=== PATIENT | male | born 1990 | race Caucasian/White ===

== ENCOUNTER 2019-04-26 18:16 | Emergency (ER) | payer OTHER ==
[~2019-04-26] VITALS: Ht 177 cm; Wt 90.0 kg
[~2019-04-26 18:16] MED LIST: CEPH-507 PO; DOXY100C2 PO; FAMO20TA5 PO; IBP800T PO; METH4TAB PO; NAPR-243 PO; NAPR500T72 PO; OMEP20TA2 PO; PHEN177S41 IH; PRD20T PO
--- NOTE | 2019-04-26 19:09 | ED Head Injury ---
General Chief Complaint: Head/Cervical Problems Stated Complaint: UNLOADING TRUCK, HIT IN HEAD BY BOX Nursing Triage Note: PT STATES WAS HIT ON HEAD TODAY BY LARGE BOX OF CHICKEN BROTH, [place] LOC BUT STATES FEELS TIRED, AND DAZED, CO OF L SIDED NECK STIFFNESS Source: patient Exam Limitations: no limitations History of Present Illness Date Seen by Provider: Apr 26, 2019 Time Seen by Provider: 19:05 Initial Comments To ER with reports of head injury while at work at [employer] today. He was hit on the top left parietal aspect of his head with a box of chicken broth is very large. No loss of consciousness but he was dazed. No anticoagulant use no seizures recalls all events no vomiting no amnesia. He does have dizziness and fatigue and complains of pain to the left side of the neck worse with turning the neck to the right. This is not midline neck tenderness. Occurred: just prior to arrival Severity: moderate Location: parietal Method of Injury: direct blow Loss of Consciousness: no loss of consciousness Associated Systoms: No Headaches, No Nausea/Vomiting Allergies and Home Medications Allergies Coded Allergies: No Known Drug Allergies (Unverified Allergy, Mild, 01/16/09) Home Medications No Active Prescriptions or Reported Meds Patient Home Medication List Home Medication List Reviewed: Yes Review of Systems Review of Systems Constitutional: see HPI Eyes: No Symptoms Reported Ears, Nose, Mouth, Throat: no symptoms reported Respiratory: no symptoms reported Cardiovascular: no symptoms reported Genitourinary: no symptoms reported Musculoskeletal: no symptoms reported Skin: no symptoms reported Psychiatric/Neurological: No Symptoms Reported Endocrine: No Symptoms Reported Past Exdaubq-Lsbvlw-Qebext Hx Patient Social History Alcohol Use: Occasionally Uses Recreational Drug Use: No Type Used: Electronic/Vapor Recent Foreign Travel: No Contact w/Someone Who Travel: No Recent Infectious Disease Expo: No Recent Hopitalizations: No Seasonal Allergies Seasonal Allergies: No Past Medical History Surgeries: No Respiratory: No Cardiac: No Neurological: No Reproductive Disorders: No Gastrointestinal: No Musculoskeletal: No Endocrine: No Cancer: No Psychosocial: No Integumentary: Yes (HIVES) Blood Disorders: No Physical Exam Vital Signs Vital Signs - First Documented 04/26/19 18:35 Temp 36.9 Pulse 60 Resp 18 B/P (MAP) 121/76 (91) Pulse Ox 99 Capillary Refill : Less Than 3 Seconds Height, Weight, BMI Height: 5'10" Weight: 195lbs. oz. 88.774781dc; 28.00 BMI Method:Stated General Appearance: WD/WN, no apparent distress HEENT: PERRL/EOMI, normal ENT inspection, TMs normal, pharynx normal, other (no hemotympanum no Marquez's sign no raccoon eyes no palpable depressed skull fracture and for that matter there is no hematoma or palpable injury to the area that was struck with the box of chicken broth) Neck: full range of motion, tender lateral Respiratory: no respiratory distress, no accessory muscle use Gastrointestinal: normal bowel sounds, non tender Psychiatric: alert, oriented x 3 Crainal Nerves: normal hearing, normal speech, PERRL Skin: normal color, warm/dry Kahlil Coma Score Best Eye Response: (4) Open Spontaneously Best Verbal Response: (5) Oriented Best Motor Response: (6) Obeys Commands [place] Total: 15 Progress/Results/Core Measures Results/Orders My Orders Orders - TWYLA LEUNG APRN Cervical Spine 3 Views Or Less (04/26/19 18:45) Vital Signs/I&O 04/26/19 18:35 Temp 36.9 Pulse 60 Resp 18 B/P (MAP) 121/76 (91) Pulse Ox 99 Blood Pressure Mean: 91 POS Departure Communication (Admissions) Based on a [place] head CT rules he does not warrant CT imaging of the head. I will obtain plain films of the neck given the pain laterally Impression Primary Impression: Brain concussion Qualified Codes: S06.0X0A - Concussion without loss of consciousness, initial encounter Additional Impression: Cervical myofascial strain Qualified Codes: S16.1XXA - Strain of muscle, fascia and tendon at neck level, initial encounter Disposition: 01 HOME, SELF-CARE Condition: Stable Departure-Patient Inst. Decision time for Depature: 19:08 Referrals: [facility] (PCP/Family) Primary Care Physician Patient Instructions: Muscle Strain, Concussion, Adult (DC) Add. Discharge Instructions: 1. This dazed feeling may persist for a couple of days accompanied by dizziness nausea headaches. If any of these become severe or worsening then we would do a CT scan of the head but at this point it is not warranted to exposure to the radiation associated with that All discharge instructions reviewed with patient and/or family. Voiced understanding. Scripts Methocarbamol (Robaxin-750) 750 Mg Tablet 750 MG PO Q4H PRN for PAIN-SEVERE, #14 TAB Prov: TWYLA LEUNG APRN 04/26/19 Work/School Note: Work Release Form Date Seen in the Emergency Department: Apr 26, 2019 Return to Work: Apr 29, 2019 TWYLA LEUNG APRN Apr 26, 2019 19:09 POS
--- NOTE | 2019-04-26 19:44 | Diagnostic Imaging Report ---
EXAMINATION: Cervical spine, 2 or 3 views. HISTORY: Trauma. COMPARISON: No radiographic comparison available. FINDINGS: There is straightening of the normal cervical lordosis. Vertebral body heights are normal. No fracture is seen. No listhesis. Disc spaces are normal. No prevertebral soft tissue swelling. Atlantoaxial alignment is normal on the open-mouth view. IMPRESSION: No acute abnormality of the cervical spine. Dictated by: Dictated on workstation # [id number]
[2019-04-26] MEDS ORDERED: METH-313 PO (19:51)
[2019-04-26 20:00] VITALS: BP 121/76
== END 2019-04-26 20:00 | disposition home or self-care (01) ==
LOC: EDUNIT# 18:16 → ER 18:18
DX: S06.0X0A Concussion without loss of consciousness, initial encounter (principal); S16.1XXA Strain of muscle, fascia and tendon at neck level, initial encounter; W22.8XXA Striking against or struck by other objects, initial encounter; Y92.59 Other trade areas as the place of occurrence of the external cause; Y99.0 Civilian activity done for income or pay
CPT/HCPCS: 72040

== ENCOUNTER 2019-06-25 14:38 | Emergency (ER) | payer SELFPAY ==
[~2019-06-25] VITALS: Ht 177.7 cm; Wt 90.6 kg
[~2019-06-25 14:38] MED LIST changes: +METH-313 PO
[2019-06-25] MEDS ORDERED: AMOX500C2 PO (15:23)
--- NOTE | 2019-06-25 15:23 | ED EENT ---
History of Present Illness General Chief Complaint: Dental Problems/Pain Stated Complaint: DENTAL PAIN;SWOLLEN FACE Nursing Triage Note: AMB TO ROOM HAS HAD BAD TOOTH FOR 7 YEARS TODAY CONCERN THAT R SIDE OF FACE IS SWOLLEN History of Present Illness Date Seen by Provider: Jun 25, 2019 Time Seen by Provider: 15:05 Initial Comments 29-year-old male presents for right upper dental pain. He states that symptoms of been present intermittently for the last 7 years. He does not currently have a dentist or a primary care provider. Severity: mild Location: dental Associated Symptoms: denies symptoms Allergies and Home Medications Allergies Coded Allergies: No Known Drug Allergies (Unverified Allergy, Mild, 01/16/09) Home Medications Amoxicillin 500 Mg Capsule, 500 MG PO TID Prescribed by: LANDEN GUZMAN on 06/25/19 1523 Patient Home Medication List Home Medication List Reviewed: Yes Review of Systems Review of Systems Constitutional: no symptoms reported, see HPI Mouth: see HPI, pain All Other Systems Reviewed Negative Unless Noted: Yes Past Mmrsbkw-Muwsjy-Zmygev Hx Past Med/Social Hx: Reviewed Nursing Past Med/Soc Hx Patient Social History Alcohol Use: Denies Use Recreational Drug Use: No Smoking Status: Current Everyday Smoker Type Used: Electronic/Vapor Recent Foreign Travel: No Contact w/Someone Who Travel: No Recent Infectious Disease Expo: No Recent Hopitalizations: No Seasonal Allergies Seasonal Allergies: No Past Medical History Surgeries: No Respiratory: No Cardiac: No Neurological: No Reproductive Disorders: No Gastrointestinal: No Musculoskeletal: No Endocrine: No Cancer: No Psychosocial: No Integumentary: Yes (HIVES) Blood Disorders: No Physical Exam Vital Signs Vital Signs - First Documented 06/25/19 15:02 Temp 36.8 Pulse 75 Resp 18 B/P (MAP) 110/67 (81) Pulse Ox 98 O2 Delivery Room Air Height, Weight, BMI Height: 5'10" Weight: 195lbs. oz. 88.549750or; 28.00 BMI Method:Stated General Appearance: WD/WN Ears: bilateral ear auricle normal, bilateral ear canal normal, bilateral ear TM normal Nose: normal inspection; No active bleeding, No discharge Mouth/Throat: pharynx normal, dental tenderness (right upper molars), maxillary swelling; No pharynx swelling, No tongue swollen, No tonsillar exudate, No uvula swelling, No voice changes Neck: non-tender, full range of motion, supple, normal inspection; No lymphadenopathy (R), No lymphadenopathy (L) Cardiovascular: normal peripheral pulses, regular rate, rhythm Respiratory: chest non-tender, lungs clear, normal breath sounds Neurologic/Psychiatric: no motor/sensory deficits, alert, normal mood/affect, oriented x 3 Progress/Results/Core Measures Results/Orders Vital Signs/I&O 06/25/19 06/25/19 15:02 15:34 Temp 36.8 36.8 Pulse 75 75 Resp 18 18 B/P (MAP) 110/67 (81) 110/67 (81) Pulse Ox 98 98 O2 Delivery Room Air Blood Pressure Mean: 81 Departure Impression Primary Impression: Pain, dental Additional Impression: Dental abscess Disposition: HOME, SELF-CARE Condition: Improved Departure-Patient Inst. Decision time for Depature: 15:20 Referrals: NO,LOCAL PHYSICIAN (PCP/Family) Primary Care Physician Patient Instructions: Dental Pain (DC), Tooth Abscess (DC) Add. Discharge Instructions: Alternate heat and ice to face for areas of pain. Take antibiotic as prescribed for infection. Alternate between Tylenol 650 mg and ibuprofen 600 mg every 4 hours for pain. Schedule follow-up at [facility] for tooth extraction. Establish care at [facility] for nonemergent health care needs. Return to the emergency department for new, urgent health care problems. All discharge instructions reviewed with patient and/or family. Voiced understanding. Scripts Amoxicillin (Amoxicillin) 500 Mg Capsule 500 MG PO TID, #21 CAP 0 Refills Prov: LANDEN GUZMAN 06/25/19 LANDEN GUZMAN Jun 25, 2019 15:23
[2019-06-25 15:34] VITALS: BP 110/67
== END 2019-06-25 15:30 | disposition home or self-care (01) ==
LOC: ER 14:38 → EDUNIT# 14:38 → ER 15:30
DX: K04.7 Periapical abscess without sinus (principal); F17.290 Nicotine dependence, other tobacco product, uncomplicated
CPT/HCPCS: 99282

== ENCOUNTER 2021-02-26 01:05 | Emergency (ER) | payer SELFPAY ==
[~2021-02-26] VITALS: Ht 177 cm; Wt 97.5 kg
[~2021-02-26 01:05] MED LIST changes: +AMOX500C2 PO; +AZIT250T12 PO
[2021-02-26] MEDS ORDERED: AUGMENTIN 875 MG TAB (AMOXICILLIN/CLAVULANATE) PO STA (01:18)
--- NOTE | 2021-02-26 01:29 | ED Integumentary General ---
General Chief Complaint: Bite-Animal/Human/Insect Stated Complaint: DOG BITE R LEG Source: patient Exam Limitations: no limitations History of Present Illness Date Seen by Provider: Feb 26, 2021 Time Seen by Provider: 01:13 Initial Comments Here with report of dog bite to the right lower leg above the ankle. Apparently he was at his cousin's house here in town and was walking one of the dogs. The other dog that is only outside (the [place] Segal) was wrapped up around the pole that he is tied up to. The patient went to unwrap the dog and the other dog that he was walking in the dog that was wrapped up started fighting. He tried to separate the dogs and the [place] Segal accidentally bit him on the leg. Patient reports last tetanus shot was 5 years ago. Bleeding is controlled. Does have 4 cm horizontal laceration. No other wounds noted. The dogs are known animals and reportedly up-to-date on the vaccination. Timing/Duration: just prior to arrival Severity: moderate Location: extremities (Right lower) Possible Cause: other (Dog bite) Allergies and Home Medications Allergies Coded Allergies: No Known Drug Allergies (Unverified Allergy, Mild, 01/16/09) Patient Home Medication List Home Medication List Reviewed: Yes Amoxicillin (Amoxicillin) 500 Mg Capsule, 500 MG PO TID Prescribed by: LANDEN GUZMAN on 06/25/19 1523 Azithromycin (Azithromycin) 250 Mg Tablet, 250 MG PO UD Prescribed by: TWYLA LEUNG on 11/13/20 1322 Prednisone (Prednisone) 20 Mg Tab, 40 MG PO DAILY Prescribed by: TWYLA LEUNG on 11/13/20 1322 Review of Systems Review of Systems Constitutional: No chills, No fever Respiratory: no symptoms reported Cardiovascular: no symptoms reported Skin: see HPI, change in color, lesions (Right lower extremity) Psychiatric/Neurological: No Symptoms Reported Past Glikycq-Xykofl-Tgydpz Hx Patient Social History Tobacco Use?: Yes Tobacco type used: Cigarettes Substance use?: No Alcohol Use?: Yes Alcohol type: Hard Liquor Alcohol Frequency: Several times a month Immunizations Up To Date Influenza Vaccine Up-to-Date: Yes; Up-to-Date Seasonal Allergies Seasonal Allergies: No Past Medical History Surgeries: No Respiratory: No Cardiac: No Neurological: No Reproductive Disorders: No Gastrointestinal: No Musculoskeletal: No Endocrine: No Cancer: No Psychosocial: Yes Depression Integumentary: Yes (HIVES) Blood Disorders: No Family Medical History Reviewed Nursing Family Hx Physical Exam Vital Signs Capillary Refill : General Appearance: WD/WN, no apparent distress Cardiovascular: regular rate, rhythm, no murmur Respiratory: lungs clear, normal breath sounds Neurologic/Psychiatric: alert, oriented x 3 Skin: warm/dry, other (4 cm horizontal laceration to the right lower extremity medial aspect above the ankle. Does have some gapping in the middle. Would benefit from closure.) Procedures/Interventions Wound Location: Lower Extremities Other Wound Location Right leg proximal to the ankle Wound Length (cm): 4 Wound's Depth, Shape: superficial, linear, irregular Wound Explored: contaminated Irrigated w/ Saline (ccs): 100 Betadine Prep?: Yes Anesthesia: 1% Lidocaine Volume Anesthetic (ccs): 6 Wound Debrided: minimal Suture: Prolene Suture Size: 4-0 Number of Sutures: 4 Layer Closure?: 1 Number Deep Layer Sutures: 0 Sterile Dressing Applied?: Yes Progress Wound cleaned with chlorhexidine soap and saline after local anesthesia. Scrubbed with gauze and then flushed with copious normal saline. Closed loosely with 4-0 Prolene times 4 sutures. Tolerated procedure well with no complications. Cover with antibiotic ointment and dressing. Progress/Results/Core Measures Results/Orders My Orders Orders - OLGA RAYA MD Amoxicillin/Clavulanate Tablet (Augmenti (02/26/21 01:18) Lidocaine 1% Inj 20 Ml (Xylocaine 1% Inj (02/26/21 01:30) Medications Given in ED Current Medications Medications Dose Ordered Sig/Isabel Route Start Time Stop Time Status Last Admin Dose Admin Lidocaine HCl 20 ml ONCE ONCE INJ 02/26/21 01:30 02/26/21 01:31 DC 02/26/21 01:29 20 ML Progress Progress Note : Progress Note Seen and evaluated. Wound closure loosely with 4-0 Prolene to improve healing. This was done after local anesthetic and thorough cleaning. Augmentin 875 1 tab p.o. given. Discharged home with return precautions. Patient verbalized understanding instructions and agreement with plan. Law enforcement notified and did take report. Departure Impression Primary Impression: Dog bite Qualified Codes: W54.0XXA - Bitten by dog, initial encounter Additional Impression: Laceration of right lower extremity Qualified Codes: S81.811A - Laceration without foreign body, right lower leg, initial encounter Disposition: HOME, SELF-CARE Condition: Improved Departure-Patient Inst. Decision time for Depature: 01:49 Referrals: [facility] ([facility]P/Family) Primary Care Physician Patient Instructions: Laceration Repair With Stitches ED, Animal Bites (DC) Add. Discharge Instructions: All discharge instructions reviewed with patient and/or family. Voiced understanding. Use antibiotic ointment over wounds and change dressing twice daily. It is okay to shower and gently wash with soap and water. Do not soak the wound in any body of water. You may use Tylenol and/or ibuprofen as needed for pain per package directions. Return for foul-smelling drainage, red streaks up the leg, fever, increasing pain or other concerns as needed. Sutures out in 10 to 14 days. Return to the emergency department for suture removal. Take medications as directed. Scripts Amoxicillin/Potassium Clav (Amox Tr-K Clv 500-125 mg Tab) 1 Each Tablet 1 EACH PO BID for 10 Days, #20 TAB 0 Refills Prov: OLGA RAYA MD 02/26/21 OLGA RAYA MD Feb 26, 2021 01:29
[2021-02-26] MEDS ORDERED: LIDOCAINE 1% INJ 20 ML 20 ML VIAL INJ ONE (01:30)
[2021-02-26] MEDS ORDERED: AMOX1TAB11 PO (01:52)
[2021-02-26 01:55] VITALS: BP 127/75
== END 2021-02-26 01:58 | disposition home or self-care (01) ==
LOC: EDUNIT# 01:05 → ER 01:06
DX: S81.851A Open bite, right lower leg, initial encounter (principal); Z79.52 Long term (current) use of systemic steroids; W54.0XXA Bitten by dog, initial encounter
CPT/HCPCS: 12042

== ENCOUNTER 2021-03-08 13:09 | Emergency (ER) | payer SELFPAY ==
[~2021-03-08] VITALS: Ht 175 cm; Wt 93.0 kg
[~2021-03-08 13:09] MED LIST changes: +AMOX1TAB11 PO
[2021-03-08] MEDS ORDERED: CEPH500T PO (13:27)
[2021-03-08 13:35] VITALS: BP 96/72
== END 2021-03-08 13:36 | disposition home or self-care (01) ==
LOC: EDUNIT# 13:09 → ER 13:10
DX: Z48.02 Encounter for removal of sutures (principal)

== ENCOUNTER 2021-05-15 20:11 | Emergency (ER) | payer SELFPAY ==
[~2021-05-15] VITALS: Ht 178 cm; Wt 95.0 kg
[~2021-05-15 20:11] MED LIST changes: +CEPH500T PO
--- NOTE | 2021-05-15 20:36 | ED General ---
General Stated Complaint: CONGESTION/SORE THROAT/NO TASTE/BODY ACHES Source of Information: Patient Exam Limitations: No Limitations History of Present Illness Date Seen by Provider: May 15, 2021 Time Seen by Provider: 20:36 Initial Comments This is a well-appearing 31-year-old male who presented to the ER with complaints of significant nasal congestion, sore throat, mild cough, loss of taste and smell and body aches. States that he developed symptoms approximately 2 days ago. He did have his Covid vaccines Moderna, both doses in November/December of this year. Has been using [id number]-[id number] cough drops and Claritin with no relief of symptoms. No fever, chest pain, shortness of breath, nausea, vomiting, abdominal pain. Allergies and Home Medications Allergies Coded Allergies: No Known Drug Allergies (Unverified Allergy, Mild, 01/16/09) Patient Home Medication List Home Medication List Reviewed: Yes Amoxicillin (Amoxicillin) 500 Mg Capsule, 500 MG PO TID Prescribed by: LANDEN GUZMAN on 06/25/19 1523 Amoxicillin/Potassium Clav (Amox Tr-K Clv 500-125 mg Tab) 1 Each Tablet, 1 EACH PO BID Prescribed by: OLGA RAYA on 02/26/21 0152 Azithromycin (Azithromycin) 250 Mg Tablet, 250 MG PO UD Prescribed by: TWYLA LEUNG on 11/13/20 1322 Cephalexin (Cephalexin) 500 Mg Tablet, 500 MG PO QID Prescribed by: TWYLA LEUNG on 03/08/21 1327 Methylprednisolone (Methylprednisolone Dose Pack) 4 Mg Tab.ds.pk, 4 MG PO UD Prescribed by: WENDY HARPER on 05/15/21 2143 Prednisone (Prednisone) 20 Mg Tab, 40 MG PO DAILY Prescribed by: TWYLA LEUNG on 11/13/20 1322 Review of Systems Review of Systems Constitutional: see HPI EENTM: see HPI Respiratory: cough Cardiovascular: no symptoms reported Gastrointestinal: no symptoms reported Genitourinary: no symptoms reported Musculoskeletal: no symptoms reported Skin: no symptoms reported Psychiatric/Neurological: No Symptoms Reported Hematologic/Lymphatic: No Symptoms Reported Immunological/Allergic: no symptoms reported Past Pindjdq-Rokbcb-Uimxse Hx Seasonal Allergies Seasonal Allergies: No Past Medical History Surgeries: No Respiratory: No Cardiac: No Neurological: No Reproductive Disorders: No Gastrointestinal: No Musculoskeletal: No Endocrine: No Cancer: No Psychosocial: Yes Depression Integumentary: Yes (HIVES) Blood Disorders: No Physical Exam Vital Signs Vital Signs - First Documented Capillary Refill : Height, Weight, BMI Height: 5'10" Weight: 195lbs. oz. 88.318070pg; 31.00 BMI Method:Actual General Appearance: No Apparent Distress, WD/WN Eyes: Bilateral Eye Normal Inspection, Bilateral Eye PERRL, Bilateral Eye EOMI HEENT: PERRL/EOMI, Normal ENT Inspection, Pharynx Normal, Moist Mucous Membranes; No Pharyngeal Erythema; Other (frontal and maxillary sinus tenderness ) Neck: Full Range of Motion, Normal Inspection, Non Tender, Supple Respiratory: Lungs Clear, Normal Breath Sounds, No Accessory Muscle Use, No Respiratory Distress Cardiovascular: Regular Rate, Rhythm, No Edema, No Murmur Gastrointestinal: Normal Bowel Sounds, Non Tender, Soft Extremity: Normal Inspection, Normal Range of Motion Neurologic/Psychiatric: Alert, Oriented x3, No Motor/Sensory Deficits, Normal Mood/Affect Skin: Normal Color, Warm/Dry Lymphatic: No Adenopathy Procedures/Interventions Suture Size: 4-0 Progress/Results/Core Measures Suspected Sepsis SIRS Temperature: Pulse: Respiratory Rate: Blood Pressure / Mean: Results/Orders Lab Results Laboratory Tests Test 05/15/21 20:32 Range/Units Influenza Type A (RT-PCR) Not Detected Not Detecte Influenza Type B (RT-PCR) Not Detected Not Detecte SARS-CoV-2 RNA (RT-PCR) Detected H Not Detecte My Orders Orders - WENDY HARPER APRN Covid 19 Inhouse Test (05/15/21 20:31) Influenza A And B By Pcr (05/15/21 20:32) Vital Signs/I&O 05/15/21 05/15/21 05/15/21 20:25 20:25 21:55 Temp 36.9 Pulse 88 70 Resp 16 16 B/P (MAP) 124/82 (96) 114/90 Pulse Ox 97 98 O2 Delivery Room Air Room Air Room Air Capillary Refill : Progress Note : Progress Note Patient examined and in no acute distress. Vital signs stable. Orders placed for Covid and influenza swabs. COVID swab positive. Discharge POC reviewed and he his agreeable with plan. Departure Impression Primary Impression: COVID-19 Disposition: 01 HOME, SELF-CARE Condition: Stable Departure-Patient Inst. Decision time for Depature: 21:37 Referrals: [facility] (PCP/Family) Primary Care Physician Patient Instructions: COVID-19 ED Add. Discharge Instructions: Plan: 1. Isolate at home until you are release by [facility]. 2. Take Steroids daily with food as directed. 3. May take Tylenol or Ibuprofen as needed for pain/fever. 4. Return if you develop any new, concerning, or worsening symptoms. Scripts Methylprednisolone (Methylprednisolone Dose Pack) 4 Mg Tab.ds.pk 4 MG PO UD for 6 Days, #21 PKG 0 Refills PER DOSE PACK INSTRUCTIONS Prov: WENDY HARPER MINER 05/15/21 WENDY HARPER MINER May 15, 2021 20:36
[2021-05-15] MEDS ORDERED: METH4TAB10 PO (21:43)
[2021-05-15 21:55] VITALS: BP 114/90
== END 2021-05-15 21:55 | disposition home or self-care (01) ==
LOC: EDUNIT# 20:11 → ER 20:14
DX: U07.1 COVID-19 (principal)
CPT/HCPCS: 87636; 99283

== ENCOUNTER 2021-08-24 01:45 | Emergency (ER) | payer SELFPAY ==
[~2021-08-24] VITALS: Ht 177 cm; Wt 102.0 kg
[~2021-08-24 01:45] MED LIST changes: +METH4TAB10 PO
--- NOTE | 2021-08-24 03:40 | ED Abdominal Pain ---
General Chief Complaint: Abdominal/GI Problems Stated Complaint: ABD PAIN Nursing Triage Note: STOMACH PAIN X1 DAY. PAIN LOCATED IN LOWER ABDOMEN BILATERALLY. VOMITTED MULTIPLE TIME, "NOW, NOTHING IS COMING UP." DRANK PRUNE JUICE YESTERDAY. HAD SMALL "SOGGY SOLID" BOWEL MOVEMENT. PAIN CONTINUES AND INCREASING. HAS TRIED MULTIPLE TIMES TO HAVE A BM SINCE ARRIVAL. Source of Information: Patient Exam Limitations: No Limitations (OPAL VALLEJO) History of Present Illness Date Seen by Provider: Aug 24, 2021 Time Seen by Provider: 03:30 Initial Comments This is a 31 YO male presenting to the ED with lower abdominal pain worsening over the past day. Has also had nausea and vomiting. Feels constipated and has the urge to have a bowel movement, but is unable to. Last BM was yesterday. Has used Tums and prune juice for sx without improvement. No history of abdominal surgeries. Timing/Duration: 24 Hours Associated Symptoms: Nausea/Vomiting (OPAL VALLEJO STUDENT) Allergies and Home Medications Allergies Coded Allergies: No Known Drug Allergies (Unverified Allergy, Mild, 01/16/09) Patient Home Medication List Home Medication List Reviewed: Yes (NASIMA ARTEAGA MD) Amoxicillin (Amoxicillin) 500 Mg Capsule, 500 MG PO TID Prescribed by: LANDEN GUZMAN on 06/25/19 1523 Amoxicillin/Potassium Clav (Amox Tr-K Clv 500-125 mg Tab) 1 Each Tablet, 1 EACH PO BID Prescribed by: OLGA RAYA on 02/26/21 0152 Azithromycin (Azithromycin) 250 Mg Tablet, 250 MG PO UD Prescribed by: TWYLA LEUNG on 11/13/20 1322 Cephalexin (Cephalexin) 500 Mg Tablet, 500 MG PO QID Prescribed by: TWYLA LEUNG on 03/08/21 1327 Ciprofloxacin HCl (Ciprofloxacin HCl) 500 Mg Tablet, 500 MG PO BID Prescribed by: NASIMA MOSER on 08/24/21 0739 Methylprednisolone (Methylprednisolone Dose Pack) 4 Mg Tab.ds.pk, 4 MG PO UD Prescribed by: WENDY HARPER on 05/15/21 214 Ondansetron (Ondansetron Odt) 4 Mg Tab.rapdis, 4 MG SL Q4H PRN for NAUSEA/VOMITING Prescribed by: NASIMA MOSER on 08/24/21 0739 Oxycodone HCl/Acetaminophen (Percocet 5-325 mg Tablet) 1 Each Tablet, 1-2 TAB PO Q4H PRN for PAIN-MODERATE (5-7) Prescribed by: NASIMA MOSER on 08/24/21 0739 Prednisone (Prednisone) 20 Mg Tab, 40 MG PO DAILY Prescribed by: TWYLA LEUNG on 11/13/20 1322 Promethazine HCl (Promethazine Tablet) 25 Mg Tablet, 25 MG PO Q6H PRN for NAUSEA/VOMITING-2ND LINE Prescribed by: NASIMA MOSER on 08/24/21 0739 Review of Systems Review of Systems Constitutional: no symptoms reported EENTM: No Symptoms Reported Respiratory: No Symptoms Reported Cardiovascular: No Symptoms Reported Gastrointestinal: See HPI Genitourinary: Other (Oligoanuria) Musculoskeletal: no symptoms reported Skin: no symptoms reported Psychiatric/Neurological: No Symptoms Reported Endocrine: No Symptoms Reported Hematologic/Lymphatic: No Symptoms Reported (NASIMA ARTEAGA MD) Past Jpqyzhe-Nrxmty-Dhpzab Hx Patient Social History Tobacco Use?: Yes Smoking Status: Current Everyday Smoker Use of E-Cig and/or Vaping dev: Yes E-Cig or Vaping type used: Nicotine Use of E-Cig and/or Vaping Leroy: Current Everyday User Substance use?: No Alcohol Use?: Yes Alcohol type: Beer Alcohol Frequency: Several times a month Pt feels they are or have been: No (OPAL VALLEJO MED STUDENT) Immunizations Up To Date Influenza Vaccine Up-to-Date: No; Not Current First/Initial COVID19 Vaccinat: JUN 2020 Second COVID19 Vaccination Zach: NOVEMBER 2020 COVID19 Vaccine Energy Conservation Engineer: ADRIANA (OPAL VALLEJO MED STUDENT) Seasonal Allergies Seasonal Allergies: No (OPAL VALLEJO MED STUDENT) Past Medical History Surgeries: No Respiratory: No Cardiac: No Neurological: No Reproductive Disorders: No Gastrointestinal: No Musculoskeletal: No Endocrine: No Cancer: No Psychosocial: Yes Depression Integumentary: Yes (HIVES) Blood Disorders: No (OPAL VALLEJO MED STUDENT) Physical Exam Vital Signs Vital Signs - First Documented 08/24/21 03:09 Temp 36.6 Pulse 69 Resp 24 B/P (MAP) 150/102 (118) Pulse Ox 98 O2 Delivery Room Air (NASIMA ARTEAGA MD) Vital Signs Capillary Refill : Less Than 3 Seconds (OPAL VALLEJO MED STUDENT) Height/Weight/BMI Height: 5'10" Weight: 195lbs. oz. 88.061369pf; 32.00 BMI Method:Actual General Appearance: WD/WN, other (mild to moderate distress) HEENT: PERRL/EOMI; No scleral icterus (R), No scleral icterus (L) Neck: full range of motion, normal inspection Respiratory: no respiratory distress, no accessory muscle use Extremities: normal range of motion, normal inspection, other (ambulatory without assistance) Neurologic/Psychiatric: no motor/sensory deficits, alert, oriented x 3 Skin: normal color, diaphoresis (OPAL VALLEJO STUDENT) Procedures/Interventions Suture Size: 4-0 (OPAL VALLEJO STUDENT) Progress/Results/Core Measures Results/Orders Lab Results Laboratory Tests Test 08/24/21 03:20 08/24/21 06:55 Range/Units White Blood Count 11.0 4.3-11.0 10^3/uL Red Blood Count 4.98 4.30-5.52 10^6/uL Hemoglobin 17.2 13.3-17.7 g/dL Hematocrit 48 40-54 % Mean Corpuscular Volume 97 80-99 fL Mean Corpuscular Hemoglobin 35 H 25-34 pg Mean Corpuscular Hemoglobin Concent 36 32-36 g/dL Red Cell Distribution Width 11.8 10.0-14.5 % Platelet Count 207 130-400 10^3/uL Mean Platelet Volume 10.1 9.0-12.2 fL Immature Granulocyte % (Auto) 0 % Neutrophils (%) (Auto) 67 42-75 % Lymphocytes (%) (Auto) 23 12-44 % Monocytes (%) (Auto) 7 0-12 % Eosinophils (%) (Auto) 2 0-10 % Basophils (%) (Auto) 0 0-10 % Neutrophils # (Auto) 7.4 1.8-7.8 10^3/uL Lymphocytes # (Auto) 2.5 1.0-4.0 10^3/uL Monocytes # (Auto) 0.8 0.0-1.0 10^3/uL Eosinophils # (Auto) 0.2 0.0-0.3 10^3/uL Basophils # (Auto) 0.0 0.0-0.1 10^3/uL Immature Granulocyte # (Auto) 0.0 0.0-0.1 10^3/uL Sodium Level 142 135-145 MMOL/L Potassium Level 4.1 3.6-5.0 MMOL/L Chloride Level 103 98-107 MMOL/L Carbon Dioxide Level 25 21-32 MMOL/L Anion Gap 14 5-14 MMOL/L Blood Urea Nitrogen 12 7-18 MG/DL Creatinine 1.49 H 0.60-1.30 MG/DL Estimat Glomerular Filtration Rate 64 BUN/Creatinine Ratio 8 Glucose Level 111 H 70-105 MG/DL Calcium Level 10.8 H 8.5-10.1 MG/DL Corrected Calcium 8.5-10.1 MG/DL Total Bilirubin 0.6 0.1-1.0 MG/DL Aspartate Amino Transf (AST/SGOT) 14 5-34 U/L Alanine Aminotransferase (ALT/SGPT) 27 0-55 U/L Alkaline Phosphatase 45 40-136 U/L C-Reactive Protein High Sensitivity 0.28 0.00-0.50 MG/DL Total Protein 7.6 6.4-8.2 GM/DL Albumin 4.7 H 3.2-4.5 GM/DL Lipase 31 8-78 U/L Urine Color YELLOW Urine Clarity CLEAR Urine pH 6.5 5-9 Urine Specific Snook <=1.005 1.016-1.022 Urine Protein NEGATIVE NEGATIVE Urine Glucose (UA) NEGATIVE NEGATIVE Urine Ketones NEGATIVE NEGATIVE Urine Nitrite NEGATIVE NEGATIVE Urine Bilirubin NEGATIVE NEGATIVE Urine Urobilinogen 0.2 < = 1.0 MG/DL Urine Leukocyte Esterase NEGATIVE NEGATIVE Urine RBC (Auto) TRACE-I H NEGATIVE Urine RBC RARE /HPF Urine WBC NONE /HPF Urine Squamous Epithelial Cells NONE /HPF Urine Crystals NONE /LPF Urine Bacteria NEGATIVE /HPF Urine Casts NONE /LPF Urine Mucus NEGATIVE /LPF Urine Culture Indicated NO (NASIMA ARTEAGA MD) My Orders Orders - NASIMA ARTEAGA MD Ed Iv/Invasive Line Start (08/24/21 04:11) Cbc With Automated Diff (08/24/21 04:11) Comprehensive Metabolic Panel (08/24/21 04:11) Hs C Reactive Protein (08/24/21 04:11) Lipase (08/24/21 04:11) Ua Culture If Indicated (08/24/21 04:11) Ondansetron Injection (Zofran Injectio (08/24/21 04:15) Fentanyl Inj (Sublimaze Injection) (08/24/21 04:15) Famotidine Injection (Pepcid Injection) (08/24/21 04:15) Morphine Injection (Morphine Injection (08/24/21 04:36) Ct Abdomen/Pelvis W (08/24/21 04:36) Lactated Ringers (Lr 1000 Ml Iv Solution (08/24/21 04:45) Lactated Ringers (Lr 1000 Ml Iv Solution (08/24/21 06:00) Ketorolac Injection (Toradol Injection) (08/24/21 06:00) Iohexol Injection (Omnipaque 350 Mg/Ml 1 (08/24/21 06:00) Received Contrast (Hold Metformin- Contr (08/24/21 06:00) Sodium Chloride Flush (Catheter Flush Sy (08/24/21 06:00) Ns (Ivpb) (Sodium Chloride 0.9% Ivpb Bag (08/24/21 06:00) Abdomen/Kub 1view (08/24/21 06:05) Promethazine Injection (Phenergan Injec (08/24/21 06:16) (NASIMA ARTEAGA MD) Medications Given in ED Current Medications Medications Dose Ordered Sig/Isabel Route Start Time Stop Time Status Last Admin Dose Admin Iohexol 100 ml ONCE ONCE IV 08/24/21 06:00 08/24/21 06:01 DC 08/24/21 06:00 100 ML Ketorolac Tromethamine 30 mg ONCE ONCE IVP 08/24/21 06:00 08/24/21 06:01 DC 08/24/21 06:39 30 MG Lactated Ringer's 1,000 ml @ 0 mls/hr Q0M ONCE IV 08/24/21 06:00 08/24/21 06:01 DC 08/24/21 06:22 1,000 MLS/HR Promethazine HCl 25 mg ONCE ONCE IVP 08/24/21 06:15 08/24/21 06:16 DC 08/24/21 06:22 25 MG Sodium Chloride 10 ml NEEDED PRN IV 08/24/21 06:00 08/24/21 07:57 DC 08/24/21 06:00 10 ML Sodium Chloride 100 ml ONCE ONCE IV 08/24/21 06:00 08/24/21 06:01 DC 08/24/21 06:00 80 ML (NASIMA ARTEAGA MD) Vital Signs/I&O 08/24/21 08/24/21 03:09 07:56 Temp 36.6 Pulse 69 69 Resp 24 24 B/P (MAP) 150/102 (118) 136/88 Pulse Ox 98 98 O2 Delivery Room Air Room Air (NASIMA ARTEAGA MD) Blood Pressure Mean: 118 Progress Progress Note : Progress Note Patient seemed quite ill upon arrival and seemed to have an acute abdomen. He was treated with fentanyl and morphine for pain. Zofran was given for nausea. IV fluids were infused. CT was obtained which revealed a left ureteral stone but no infectious process. Toradol was then given for pain. He had rebound nausea and vomiting. Phenergan 25 mg and a second liter of LR was then administered. It took the patient quite some time to provide a urine sample. UA was evaluated and showed no signs of infection. Patient was ultimately discharged with follow-up instructions as noted below as well as prescriptions. (NASIMA ARTEAGA MD) Diagnostic Imaging Diagonstic Imaging: CT Plain Films/CT/US/NM/MRI: abdomen, pelvis Comments CT scan viewed by me and report reviewed. See report below: NAME: DYLAN OSEI [facility] REC#: [id number] PT STATUS: DEP ER : 1990 PHYSICIAN: NASIMA ARTEAGA MD ADMIT DATE: 08/24/21/ER Signed Date of Exam:08/24/21 CT ABDOMEN/PELVIS W PROCEDURE: CT abdomen and pelvis with contrast. TECHNIQUE: Multiple contiguous axial images were obtained through the abdomen and pelvis after administration of intravenous contrast. Auto Exposure Controls were utilized during the CT exam to meet ALARA standards for radiation dose reduction. All CT scans use one or more of the following dose optimizing techniques: automated exposure control, MA and/or KvP adjustment based on patient size and exam type or iterative reconstruction. INDICATION: 31-year-old male presents with abdominal pain, nausea, and vomiting. COMPARISONS: None FINDINGS: The lung bases are clear. Cardiac contour is normal. Liver shows uniform attenuation. There is no intraparenchymal mass or ductal dilatation. Gallbladder shows no evidence of radiopaque stones, sludge, wall thickening or pericholecystic fluid. Spleen is unremarkable. There is a small hiatal hernia. There is also some mucosal thickening in the distal esophagus which could be additionally characterized by EGD. Stomach and duodenal sweep are unremarkable. Pancreas shows sharp margins. Adrenals are normal. Kidneys appear normal in size, position, and contour. There is some left perinephric stranding. There is also some mild left hydronephrosis. There is also some left ureteral stranding with slight prominence of the left ureter. This left obstructive uropathy is secondary to a 4 mm stone in the left ureteropelvic junction. Bladder is nondistended. Nonopacified loops of small bowel are unremarkable. Appendix is normal. Large bowel contains fecal material and gas up to the hepatic flexure. The distal colon is decompressed. There is no free air, free fluid or adenopathy. Visualized vasculature shows normal caliber of the aorta, iliac and femoral arteries with normal origin of the visceral arteries. Bone windows show some degenerative changes in the lumbosacral spine. 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 There is no spondylolisthesis. IMPRESSION: 1. Left obstructive uropathy with left perinephric stranding and periureteral stranding with mild left hydronephrosis and left hydroureter. This left obstructive uropathy is secondary to a 4 mm stone at the left UPJ. 2. No evidence of cholecystitis or appendicitis. No other areas of peritoneal inflammation seen. 3. Degenerative changes of lumbosacral spine with an incidental L5 spondylolysis without spondylolisthesis. Dictated by: Dictated on workstation # [id number] Dict: 08/24/21 0604 Trans: 08/24/21 1154 RAFA [id number] Interpreted by: RIVERA PABLO MD Electronically signed by: RIVERA PABLO MD 08/24/21 1154 Diagonstic Imaging: Xray Plain Films/CT/US/NM/MRI: abdomen, pelvis Comments NAME: DYLAN OSEI [facility] REC#: [id number] PT STATUS: DEP ER : 1990 PHYSICIAN: NASIMA ARTEAGA MD ADMIT DATE: 08/24/21/ER Signed Date of Exam:08/24/21 ABDOMEN/KUB 1VIEW INDICATION: Abdominal pain, left kidney stone. TECHNIQUE: Single view of the abdomen 6:28 AM CORRELATION STUDY: CT abdomen and pelvis, same day FINDINGS: Mild to moderate stool in the proximal colon. No evidence of bowel obstruction. There is contrast material within a decompressed, nondilated right renal collecting system. There is rather pronounced asymmetric left-sided nephrogram compared to the right. There is mild dilatation of the left renal pelvis and caliectasis present. Left ureter is filled with contrast throughout its course which is asymmetrically more prominent compared to the right. The known distal left ureteral stones not well appreciated on this examination perhaps obscured by the contrast within the bladder and distal ureter. Rightward curvature and/or rotation of the lumbar spine. IMPRESSION: 1. Rather pronounced asymmetric left-sided nephrogram compared to the right along with asymmetrically dilated left collecting system compatible with obstructive uropathy. The known distal left ureteral stone, however, is not visualized on this examination, perhaps obscured by contrast in the bladder and distal ureter. Dictated by: Dictated on workstation # [id number] Dict: 08/24/21 0647 Trans: 08/24/21 1116 RAFA [id number] Interpreted by: SEB HURLEY DO Electronically signed by: SEB HURLEY DO 08/24/21 1116 (NASIMA ARTEAGA MD) Departure Impression Primary Impression: Ureteral stone Additional Impression: Nausea & vomiting Qualified Codes: R11.2 - Nausea with vomiting, unspecified Disposition: 01 HOME, SELF-CARE Condition: Improved Departure-Patient Inst. Decision time for Depature: 07:36 (NASIMA ARTEAGA MD) Referrals: [facility] (PCP/Family) Primary Care Physician AJIT QUINTANA MD Patient Instructions: Kidney Stones in Adults Add. Discharge Instructions: Drink plenty of clear liquids to stay well-hydrated. Use Zofran (ondansetron) as prescribed for nausea vomiting. Add Phenergan (promethazine) as prescribed for additional control of nausea and vomiting if needed. Use Percocet as prescribed for pain control. Strain your urine and bring any stones collected with you to your follow-up appointment. Follow-up with Dr. Quintana or your primary care provider soon as possible. Call with questions or concerns. Return to the ER if you have intolerable symptoms or worsening symptoms. All discharge instructions reviewed with patient and/or family. Voiced understanding. Scripts Ciprofloxacin HCl (Ciprofloxacin HCl) 500 Mg Tablet 500 MG PO BID, #14 TAB Prov: NASIMA ARTEAGA MD 08/24/21 Promethazine HCl (Promethazine Tablet) 25 Mg Tablet 25 MG PO Q6H PRN for NAUSEA/VOMITING-2ND LINE, #10 TAB Prov: NASIMA ARTEAGA MD 08/24/21 Ondansetron (Ondansetron Odt) 4 Mg Tab.rapdis 4 MG SL Q4H PRN for NAUSEA/VOMITING, #10 TAB 1 Refill Prov: NASIMA ARTEAGA MD 08/24/21 Oxycodone HCl/Acetaminophen (Percocet 5-325 mg Tablet) 1 Each Tablet 1-2 TAB PO Q4H PRN for PAIN-MODERATE (5-7) MDD 6 TABS, #20 TAB Prov: NASIMA ARTEAGA MD 08/24/21 Medical Student Attestation and Attending Note: I have personally interviewed and examined this patient along with Opal Vallejo, MS 4. I have reviewed student documentation including history, physical, and assessments. I agree with the documentation except where otherwise noted. Exam: General: Alert, oriented, moderate acute distress, well developed HEENT: Normocephalic and atraumatic, mucous membranes dry Heart: Regular rate and rhythm without murmur Lungs: Clear to auscultation bilaterally with normal effort Abdomen: Soft, generalized tenderness to percussion and palpation greater in the lower quadrants, nondistended, normal bowel sounds Neuropsych: Alert, oriented, no focal deficits Skin: Warm and dry without rashes (NASIMA ARTEAGA MD) Copy Copies To 1: AJIT QUINTANA MD Copies To 2: BABAR LEBRON CHRISTINE MED STUDENT Aug 24, 2021 03:40 NASIMA ARTEAGA MD Aug 24, 2021 07:39
[2021-08-24] MEDS ORDERED: fentaNYL INJ 100 MCG/2 ML AMP IVP ONE (04:15)
[2021-08-24] MEDS ORDERED: FAMOTIDINE 20MG/2ML IV (PEPCID) IVP ONE (04:15)
[2021-08-24] MEDS ORDERED: ONDANSETRON 4 MG/2 ML (SDV) Z0FRAN IVP ONE (04:15)
[2021-08-24 04:17] LABS: BASOPHILS % (AUTO) 0 % (0-10); EOSINOPHILS # (AUTO) 0.2 10^3/uL (0.0-0.3); EOSINOPHILS % (AUTO) 2 % (0-10); HEMATOCRIT 48 % (40-54); HEMOGLOBIN 17.2 g/dL (13.3-17.7); LYMPHOCYTES # (AUTO) 2.5 10^3/uL (1.0-4.0); LYMPHOCYTES % (AUTO) 23 % (12-44); MEAN CORPUSCULAR HEMOGLOBIN 35 pg (25-34); MEAN CORPUSCULAR HGB CONC 36 g/dL (32-36); MEAN CORPUSCULAR VOLUME 97 fL (80-99); MEAN PLATELET VOLUME 10.1 fL (9.0-12.2); MONOCYTES # (AUTO) 0.8 10^3/uL (0.0-1.0); MONOCYTES % (AUTO) 7 % (0-12); NEUTROPHILS # (AUTO) 7.4 10^3/uL (1.8-7.8); NEUTROPHILS % (AUTO) 67 % (42-75); PLATELET COUNT 207 10^3/uL (130-400)
[2021-08-24 04:25] LABS: ALBUMIN 4.7 GM/DL (3.2-4.5); CHLORIDE 103 MMOL/L (98-107); POTASSIUM 4.1 MMOL/L (3.6-5.0); SODIUM 142 MMOL/L (135-145)
[2021-08-24 04:26] LABS: CALCIUM 10.8 MG/DL (8.5-10.1)
[2021-08-24 04:28] LABS: GLUCOSE 111 MG/DL (70-105); TOTAL PROTEIN 7.6 GM/DL (6.4-8.2)
[2021-08-24 04:29] LABS: BILIRUBIN,TOTAL 0.6 MG/DL (0.1-1.0); CARBON DIOXIDE 25 MMOL/L (21-32)
[2021-08-24 04:31] LABS: ALKALINE PHOSPHATASE 45 U/L (40-136); CREATININE SERUM 1.49 MG/DL (0.60-1.30); GFR ESTIMATED 64
[2021-08-24 04:32] LABS: BUN/CREATININE RATIO 8
[2021-08-24 04:34] LABS: ALANINE AMINOTRANSFERASE 27 U/L (0-55)
[2021-08-24 04:35] LABS: LIPASE 31 U/L (8-78)
[2021-08-24] MEDS ORDERED: morphine INJ 10 MG/ML 1ML (SYR OR VIAL) IVP STA (04:36)
[2021-08-24] MEDS ORDERED: LACTATED RINGERS 1,000 ML IV ONE ×2 (04:45→06:00)
[2021-08-24] MEDS ORDERED: HOLD METFORMIN - RECEIVED CONTRAST 20 ML VIAL IV SCH (06:00)
[2021-08-24] MEDS ORDERED: KETOROLAC 30 MG/ML VIAL IVP ONE (06:00)
[2021-08-24] MEDS ORDERED: CATHETER FLUSH 10 ML SYR IV PRN (06:00)
[2021-08-24] MEDS ORDERED: IOHEXOL 350 MG/ML 100 ML (OMNIPAQUE 350) VIAL IV ONE (06:00)
[2021-08-24] MEDS ORDERED: NS 100 ML (IVPB) BAG IV ONE (06:00)
--- NOTE | 2021-08-24 06:11 | Diagnostic Imaging Report ---
PROCEDURE: CT abdomen and pelvis with contrast. TECHNIQUE: Multiple contiguous axial images were obtained through the abdomen and pelvis after administration of intravenous contrast. Auto Exposure Controls were utilized during the CT exam to meet ALARA standards for radiation dose reduction. All CT scans use one or more of the following dose optimizing techniques: automated exposure control, MA and/or KvP adjustment based on patient size and exam type or iterative reconstruction. INDICATION: 31-year-old male presents with abdominal pain, nausea, and vomiting. COMPARISONS: None FINDINGS: The lung bases are clear. Cardiac contour is normal. Liver shows uniform attenuation. There is no intraparenchymal mass or ductal dilatation. Gallbladder shows no evidence of radiopaque stones, sludge, wall thickening or pericholecystic fluid. Spleen is unremarkable. There is a small hiatal hernia. There is also some mucosal thickening in the distal esophagus which could be additionally characterized by EGD. Stomach and duodenal sweep are unremarkable. Pancreas shows sharp margins. Adrenals are normal. Kidneys appear normal in size, position, and contour. There is some left perinephric stranding. There is also some mild left hydronephrosis. There is also some left ureteral stranding with slight prominence of the left ureter. This left obstructive uropathy is secondary to a 4 mm stone in the left ureteropelvic junction. Bladder is nondistended. Nonopacified loops of small bowel are unremarkable. Appendix is normal. Large bowel contains fecal material and gas up to the hepatic flexure. The distal colon is decompressed. There is no free air, free fluid or adenopathy. Visualized vasculature shows normal caliber of the aorta, iliac and femoral arteries with normal origin of the visceral arteries. Bone windows show some degenerative changes in the lumbosacral spine. 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 There is no spondylolisthesis. IMPRESSION: 1. Left obstructive uropathy with left perinephric stranding and periureteral stranding with mild left hydronephrosis and left hydroureter. This left obstructive uropathy is secondary to a 4 mm stone at the left UPJ. 2. No evidence of cholecystitis or appendicitis. No other areas of peritoneal inflammation seen. 3. Degenerative changes of lumbosacral spine with an incidental L5 spondylolysis without spondylolisthesis. Dictated by: Dictated on workstation # [id number]
[2021-08-24] MEDS ORDERED: LACTATED RINGERS 1,000 ML IV STA (06:14)
[2021-08-24] MEDS ORDERED: PROMETHAZINE INJ 25 MG/ML (PHENERGAN) AMP IVP ONE (06:15)
[2021-08-24] MEDS ORDERED: PROMETHAZINE INJ 25 MG/ML (PHENERGAN) AMP ONE (06:16)
[2021-08-24 07:04] LABS: BILIRUBIN,URINE NEGATIVE (NEGATIVE); CLARITY,URINE CLEAR; COLOR,URINE YELLOW; GLUCOSE, URINE (UA) NEGATIVE (NEGATIVE); KETONES,URINE NEGATIVE (NEGATIVE); LEUKOCYTE ESTERASE ,URINE NEGATIVE (NEGATIVE); NITRITE,URINE NEGATIVE (NEGATIVE); PH,URINE 6.5 (5-9); PROTEIN,URINE NEGATIVE (NEGATIVE)
--- NOTE | 2021-08-24 07:11 | Diagnostic Imaging Report ---
INDICATION: Abdominal pain, left kidney stone. TECHNIQUE: Single view of the abdomen 6:28 AM CORRELATION STUDY: CT abdomen and pelvis, same day FINDINGS: Mild to moderate stool in the proximal colon. No evidence of bowel obstruction. There is contrast material within a decompressed, nondilated right renal collecting system. There is rather pronounced asymmetric left-sided nephrogram compared to the right. There is mild dilatation of the left renal pelvis and caliectasis present. Left ureter is filled with contrast throughout its course which is asymmetrically more prominent compared to the right. The known distal left ureteral stones not well appreciated on this examination perhaps obscured by the contrast within the bladder and distal ureter. Rightward curvature and/or rotation of the lumbar spine. IMPRESSION: 1. Rather pronounced asymmetric left-sided nephrogram compared to the right along with asymmetrically dilated left collecting system compatible with obstructive uropathy. The known distal left ureteral stone, however, is not visualized on this examination, perhaps obscured by contrast in the bladder and distal ureter. Dictated by: Dictated on workstation # [id number]
[2021-08-24 07:19] LABS: BACTERIA,URINE NEGATIVE /HPF; RBC,URINE RARE /HPF
[2021-08-24] MEDS ORDERED: CIPR500T5 PO (07:39)
[2021-08-24] MEDS ORDERED: OXYC1TAB87 PO (07:39)
[2021-08-24] MEDS ORDERED: ONDA4TAB11 SL (07:39)
[2021-08-24] MEDS ORDERED: PROM25TA14 PO (07:39)
[2021-08-24 07:56] VITALS: BP 136/88
== END 2021-08-24 07:56 | disposition home or self-care (01) ==
LOC: EDUNIT# 01:45 → ER 01:50
DX: N13.2 Hydronephrosis with renal and ureteral calculous obstruction (principal); F17.290 Nicotine dependence, other tobacco product, uncomplicated
CPT/HCPCS: 36415; 74018; 74177; 80053; 81000; 83690; 85025; 86141

== ENCOUNTER 2021-08-24 22:12 | Emergency (ER) | payer SELFPAY ==
[~2021-08-24] VITALS: Ht 177 cm; Wt 102.0 kg
[~2021-08-24 22:12] MED LIST changes: +CIPR500T5 PO; +ONDA4TAB11 SL; +OXYC1TAB87 PO; +PROM25TA14 PO
[2021-08-24] MEDS ORDERED: ONDANSETRON 4 MG/2 ML (SDV) Z0FRAN IVP ONE (23:00)
[2021-08-24] MEDS ORDERED: NS IV 1000 ML 1,000 ML IV SCH (23:00)
[2021-08-24] MEDS ORDERED: KETOROLAC 30 MG/ML VIAL IVP ONE (23:00)
--- NOTE | 2021-08-24 23:01 | ED Abdominal Pain ---
General Chief Complaint: - Reproductive Stated Complaint: KIDNEY PAIN Nursing Triage Note: renal stone, lower back pain. did not pick up man rx today. Source of Information: Patient Exam Limitations: No Limitations History of Present Illness Date Seen by Provider: Aug 24, 2021 Time Seen by Provider: 22:40 Initial Comments Patient is a 31-year-old male who presents to the emergency department with a chief complaint of left flank pain. Patient was diagnosed with a kidney stone earlier today, this morning. He was unable to get his medications filled secondary to financial issues. He is complaining of pain at a "20". It radiates from his back down into his left lower abdomen. He denies testicle or groin pain. He states his urine is "dribbling". No burning with urination. No fevers or chills. He is having nausea and vomiting. No bowel issues. No URI symptoms, shortness of breath chest pain or productive cough. He has not taken anything for pain including jbov-hbq-nukszpb medications. All other review of systems reviewed and negative except as stated Timing/Duration: 24 Hours Severity/Quality: Severe Location: LUQ, LLQ Radiation: Groin Modifying Factors: Worsens With Breathing Associated Symptoms: Nausea/Vomiting Allergies and Home Medications Allergies Coded Allergies: No Known Drug Allergies (Unverified Allergy, Mild, 01/16/09) Patient Home Medication List Home Medication List Reviewed: Yes Amoxicillin (Amoxicillin) 500 Mg Capsule, 500 MG PO TID Prescribed by: LANDEN GUZMAN on 06/25/19 1523 Amoxicillin/Potassium Clav (Amox Tr-K Clv 500-125 mg Tab) 1 Each Tablet, 1 EACH PO BID Prescribed by: OLGA RAYA on 02/26/21 0152 Azithromycin (Azithromycin) 250 Mg Tablet, 250 MG PO UD Prescribed by: TWYLA LEUNG on 11/13/20 1322 Cephalexin (Cephalexin) 500 Mg Tablet, 500 MG PO QID Prescribed by: TWYLA LEUNG on 03/08/21 1327 Ciprofloxacin HCl (Ciprofloxacin HCl) 500 Mg Tablet, 500 MG PO BID Prescribed by: NASIMA MOSER on 08/24/21 0739 Methylprednisolone (Methylprednisolone Dose Pack) 4 Mg Tab.ds.pk, 4 MG PO UD Prescribed by: WENDY HARPER on 05/15/21 2143 Ondansetron (Ondansetron Odt) 4 Mg Tab.rapdis, 4 MG SL Q4H PRN for NAUSEA/VOM ITING Prescribed by: NASIMA MOSER on 08/24/21 0739 Oxycodone HCl/Acetaminophen (Percocet 5-325 mg Tablet) 1 Each Tablet, 1-2 TAB PO Q4H PRN for PAIN-MODERATE (5-7) Prescribed by: NASIMA MOSER on 08/24/21 0739 Prednisone (Prednisone) 20 Mg Tab, 40 MG PO DAILY Prescribed by: TWYLA LEUNG on 11/13/20 1322 Promethazine HCl (Promethazine Tablet) 25 Mg Tablet, 25 MG PO Q6H PRN for NAUSEA/VOMITING-2ND LINE Prescribed by: NASIMA MOSER on 08/24/21 0739 Review of Systems Review of Systems Constitutional: see HPI EENTM: No Symptoms Reported Respiratory: No Symptoms Reported Cardiovascular: No Symptoms Reported Gastrointestinal: Abdominal Pain (left flank) Genitourinary: Other (hesitancy) Musculoskeletal: back pain Skin: no symptoms reported Psychiatric/Neurological: No Symptoms Reported All Other Systems Reviewed Negative Unless Noted: Yes Past Awnptwc-Dblcdh-Bsnvcx Hx Patient Social History Tobacco Use?: Yes Substance use?: Yes Substance type: Marijuana Alcohol Use?: Yes Pt feels they are or have been: No Immunizations Up To Date First/Initial COVID19 Vaccinat: JUN 2020 Second COVID19 Vaccination Zach: NOVEMBER 2020 Seasonal Allergies Seasonal Allergies: No Past Medical History Surgery/Hospitalization HX: renal stones Surgeries: No Respiratory: No Cardiac: No Neurological: No Reproductive Disorders: No Gastrointestinal: No Musculoskeletal: No Endocrine: No Cancer: No Psychosocial: Yes Depression Integumentary: Yes (HIVES) Blood Disorders: No Physical Exam Vital Signs Vital Signs - First Documented 08/24/21 22:30 Temp 36.6 Pulse 85 Resp 20 B/P (MAP) 129/107 (114) Pulse Ox 96 O2 Delivery Room Air Capillary Refill : Less Than 3 Seconds Height/Weight/BMI Height: 5'10" Weight: 195lbs. oz. [id number]; 32.00 BMI Method:Actual General Appearance: WD/WN, moderate distress Neck: normal inspection Respiratory: lungs clear, normal breath sounds, no respiratory distress, no accessory muscle use Cardiovascular: regular rate, rhythm Gastrointestinal: normal bowel sounds, soft, tenderness (left flank) Extremities: normal range of motion, normal inspection Back: CVA tenderness (L) Neurologic/Psychiatric: alert, normal mood/affect, oriented x 3 Skin: normal color, warm/dry Procedures/Interventions Suture Size: 4-0 Progress/Results/Core Measures Results/Orders My Orders Orders - KERVIN BARRAZA MD Ed Iv/Invasive Line Start (08/24/21 22:48) Ketorolac Injection (Toradol Injection) (08/24/21 23:00) Ondansetron Injection (Zofran Injectio (08/24/21 23:00) Ns Iv 1000 Ml (Sodium Chloride 0.9%) (08/24/21 23:00) Morphine Injection (Morphine Injection (08/25/21 00:22) Tamsulosin Capsule (Flomax Capsule) (08/25/21 18:00) Rx-Hydrocodone/Apap 5-325 Mg (Rx-Vicodin (08/25/21 00:30) Rx-Ondansetron Po (Rx-Zofran Po) (08/25/21 00:23) Tamsulosin Capsule (Flomax Capsule) (08/25/21 00:38) Medications Given in ED Current Medications Medications Dose Ordered Sig/Isabel Route Start Time Stop Time Status Last Admin Dose Admin Acetaminophen/ Hydrocodone Bitart 1 ea Q6H PRN PO 08/25/21 00:30 08/25/21 00:47 1 EA Ketorolac Tromethamine 15 mg ONCE ONCE IVP 08/24/21 23:00 08/24/21 23:01 DC 08/24/21 23:11 15 MG Ondansetron HCl 4 mg ONCE ONCE IVP 08/24/21 23:00 08/24/21 23:01 DC 08/24/21 23:11 4 MG Vital Signs/I&O 08/24/21 08/24/21 22:30 23:11 Temp 36.6 36.6 Pulse 85 Resp 20 B/P (MAP) 129/107 (114) Pulse Ox 96 O2 Delivery Room Air Blood Pressure Mean: 114 Progress Progress Note : Time: 00:53 Progress Note patient re-evaluated. He is feeling better. Will send home with take home packs of hydrocodone and zofran. He is strongly encouraged to get his meds filled. Strain urine. Follow up with Urology. return precautions given. Departure Impression Primary Impression: Kidney stone on left side Disposition: 01 HOME, SELF-CARE Condition: Improved Departure-Patient Inst. Decision time for Depature: 00:55 Referrals: [facility] [place] Primary Care Physician AJIT QUINTANA MD Patient Instructions: Kidney Stone, Adult ED Add. Discharge Instructions: Drink lots of fluids to stay well-hydrated. You can take pidi-cyp-oogdcnf ibuprofen, 4 tablets which is 800 mg every 8 hours with food as needed for pain. I have given you pain medications from the ED tonight. You can take 1 every 6 hours as needed for severe pain. You also have nausea medications you can take 1 every 8 hours for nausea and vomiting. If you develop a fever or burning with urination with continued pain please come back to the emergency room for reevaluation. You should follow-up with Dr. Yan, urologist for further evaluation and management of the kidney stone. Strain your urine until you passed the stone. KERVIN BARRAZA MD Aug 24, 2021 23:01
[2021-08-25] MEDS ORDERED: morphine INJ 10 MG/ML 1ML (SYR OR VIAL) IVP STA (00:22)
[2021-08-25] MEDS ORDERED: RX-ONDANSETRON 4 MG ODT (ZOFRAN) PPK #4 PO STA (00:23)
[2021-08-25] MEDS ORDERED: TAMSULOSIN 0.4 MG (FLOMAX) CAP PO ONE (00:38)
[2021-08-25 01:37] VITALS: BP 118/76
[2021-08-25] MEDS ORDERED: TAMSULOSIN 0.4 MG (FLOMAX) CAP PO SCH (18:00)
== END 2021-08-25 01:39 | disposition home or self-care (01) ==
LOC: EDUNIT# 22:12 → ER 22:14
DX: N13.2 Hydronephrosis with renal and ureteral calculous obstruction (principal); Z72.0 Tobacco use

== ENCOUNTER 2021-09-12 14:28 | Emergency (ER) | payer SELFPAY ==
[~2021-09-12] VITALS: Ht 177 cm; Wt 102.0 kg
[2021-09-12 14:35] VITALS: BP 133/86
[2021-09-12] MEDS ORDERED: KETOROLAC 30 MG/ML VIAL IVP ONE (15:00)
--- NOTE | 2021-09-12 15:03 | ED Abdominal Pain ---
General Chief Complaint: Abdominal/GI Problems Stated Complaint: BACK / ABD PAIN Nursing Triage Note: ARRIVED VIA AMB WITH COMPLAINTS OF LEFT LOWER ABD PAIN. STATES HE WAS SEEN HERE 2 WEEKS AGO FOR KIDNEY STONES. Source of Information: Patient Exam Limitations: No Limitations History of Present Illness Date Seen by Provider: Sep 12, 2021 Time Seen by Provider: 14:39 Initial Comments Patient to the ER by private conveyance from home with chief complaint of continued 8 out of 10, sharp, constant pain in his left flank and down into his left groin. Couple weeks ago he was described as having a kidney stone the size of a ballpoint pen head that still has not passed. He has not followed up with urology. He did take a course of antibiotics. He ran out of pain medications and the pain started coming back today. No diarrhea hematuria dysuria fevers chills. No nausea or vomiting. Previous CT noted a 4 mm ureteral calculus on the left with pronounced hydroureter and hydronephrosis. Allergies and Home Medications Allergies Coded Allergies: No Known Drug Allergies (Unverified , 01/16/09) Patient Home Medication List Home Medication List Reviewed: Yes Amoxicillin (Amoxicillin) 500 Mg Capsule, 500 MG PO TID Prescribed by: LANDEN GUZMAN on 06/25/19 1523 Amoxicillin/Potassium Clav (Amox Tr-K Clv 500-125 mg Tab) 1 Each Tablet, 1 EACH PO BID Prescribed by: OLGA RAYA on 02/26/21 0152 Azithromycin (Azithromycin) 250 Mg Tablet, 250 MG PO UD Prescribed by: TWYLA LEUNG on 11/13/20 1322 Cephalexin (Cephalexin) 500 Mg Tablet, 500 MG PO QID Prescribed by: TWYLA LEUNG on 03/08/21 1327 Ciprofloxacin HCl (Ciprofloxacin HCl) 500 Mg Tablet, 500 MG PO BID Prescribed by: NASIMA MOSER on 08/24/21 0739 Methylprednisolone (Methylprednisolone Dose Pack) 4 Mg Tab.ds.pk, 4 MG PO UD Prescribed by: WENDY HARPER on 05/15/21 214 Ondansetron (Ondansetron Odt) 4 Mg Tab.rapdis, 4 MG SL Q4H PRN for NAUSEA/VOMITING Prescribed by: NASIMA MOSER on 08/24/21 0739 Oxycodone HCl/Acetaminophen (Percocet 5-325 mg Tablet) 1 Each Tablet, 1-2 TAB PO Q4H PRN for PAIN-MODERATE (5-7) Prescribed by: NASIMA MOSER on 08/24/21 0739 Prednisone (Prednisone) 20 Mg Tab, 40 MG PO DAILY Prescribed by: TWYLA LEUNG on 11/13/20 1322 Promethazine HCl (Promethazine Tablet) 25 Mg Tablet, 25 MG PO Q6H PRN for NAUSEA/VOMITING-2ND LINE Prescribed by: NASIMA MOSER on 08/24/21 0739 Review of Systems Review of Systems Constitutional: No chills, No diaphoresis EENTM: No Blurred Vision, No Double Vision Respiratory: Denies Cough, Denies Shortness of Air Cardiovascular: Denies Chest Pain, Denies Lightheadedness Gastrointestinal: Denies Constipated, Denies Diarrhea, Denies Nausea Genitourinary: Denies Burning, Denies Discharge All Other Systems Reviewed Negative Unless Noted: Yes Past Xqciomv-Mkflrw-Tldmwq Hx Patient Social History Tobacco Use?: Yes Smoking Status: Current Everyday Smoker Use of E-Cig and/or Vaping dev: No Alcohol Use?: Yes Alcohol Frequency: Couple times a week Immunizations Up To Date First/Initial COVID19 Vaccinat: JUN 2020 Second COVID19 Vaccination Zach: UNKNOWN DATE 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 oz. 88.252575ra; 32.00 BMI Method:Actual General Appearance: WD/WN, mild distress HEENT: PERRL/EOMI, pharynx normal Neck: full range of motion, normal inspection Respiratory: lungs clear, normal breath sounds, no respiratory distress, no a ccessory muscle use Cardiovascular: normal peripheral pulses, regular rate, rhythm Gastrointestinal: non tender, soft Extremities: normal range of motion, normal inspection, normal capillary refill Neurologic/Psychiatric: alert, normal mood/affect, oriented x 3 Skin: normal color, warm/dry Procedures/Interventions Suture Size: 4-0 Progress/Results/Core Measures Results/Orders Lab Results Laboratory Tests Test 09/12/21 14:59 09/12/21 15:23 Range/Units White Blood Count 5.5 4.3-11.0 10^3/uL Red Blood Count 4.65 4.30-5.52 10^6/uL Hemoglobin 16.0 13.3-17.7 g/dL Hematocrit 45 40-54 % Mean Corpuscular Volume 97 80-99 fL Mean Corpuscular Hemoglobin 34 25-34 pg Mean Corpuscular Hemoglobin Concent 36 32-36 g/dL Red Cell Distribution Width 11.5 10.0-14.5 % Platelet Count 166 130-400 10^3/uL Mean Platelet Volume 9.9 9.0-12.2 fL Immature Granulocyte % (Auto) 0 % Neutrophils (%) (Auto) 60 42-75 % Lymphocytes (%) (Auto) 30 12-44 % Monocytes (%) (Auto) 6 0-12 % Eosinophils (%) (Auto) 3 0-10 % Basophils (%) (Auto) 1 0-10 % Neutrophils # (Auto) 3.3 1.8-7.8 10^3/uL Lymphocytes # (Auto) 1.7 1.0-4.0 10^3/uL Monocytes # (Auto) 0.4 0.0-1.0 10^3/uL Eosinophils # (Auto) 0.2 0.0-0.3 10^3/uL Basophils # (Auto) 0.0 0.0-0.1 10^3/uL Immature Granulocyte # (Auto) 0.0 0.0-0.1 10^3/uL Sodium Level 139 135-145 MMOL/L Potassium Level 3.7 3.6-5.0 MMOL/L Chloride Level 107 98-107 MMOL/L Carbon Dioxide Level 23 21-32 MMOL/L Anion Gap 9 5-14 MMOL/L Blood Urea Nitrogen 12 7-18 MG/DL Creatinine 1.06 0.60-1.30 MG/DL Estimat Glomerular Filtration Rate 96 BUN/Creatinine Ratio 11 Glucose Level 109 H 70-105 MG/DL Calcium Level 9.4 8.5-10.1 MG/DL Urine Color YELLOW Urine Clarity CLEAR Urine pH 7.0 5-9 Urine Specific [place] 1.020 1.016-1.022 Urine Protein NEGATIVE NEGATIVE Urine Glucose (UA) NEGATIVE NEGATIVE Urine Ketones NEGATIVE NEGATIVE Urine Nitrite NEGATIVE NEGATIVE Urine Bilirubin NEGATIVE NEGATIVE Urine Urobilinogen 0.2 < = 1.0 MG/DL Urine Leukocyte Esterase NEGATIVE NEGATIVE Urine RBC (Auto) NEGATIVE NEGATIVE Urine RBC NONE /HPF Urine WBC NONE /HPF Urine Crystals NONE /LPF Urine Bacteria NEGATIVE /HPF Urine Casts NONE /LPF Urine Mucus NEGATIVE /LPF Urine Culture Indicated NO My Orders Orders - BRIANA CARMONA Ed Iv/Invasive Line Start (09/12/21 14:55) Ketorolac Injection (Toradol Injection) (09/12/21 15:00) Cbc With Automated Diff (09/12/21 14:55) Basic Metabolic Panel (09/12/21 14:55) Ua Culture If Indicated (09/12/21 14:55) Abdomen/Kub 1view (09/12/21 14:55) Medications Given in ED Current Medications Medications Dose Ordered Sig/Isabel Route Start Time Stop Time Status Last Admin Dose Admin Ketorolac Tromethamine 30 mg ONCE ONCE IVP 09/12/21 15:00 09/12/21 15:01 DC 09/12/21 15:09 30 MG Vital Signs/I&O 09/12/21 14:35 Temp 37.3 Pulse 77 Resp 16 B/P (MAP) 133/86 (102) Pulse Ox 98 O2 Delivery Room Air Blood Pressure Mean: 102 Progress Progress Note : Time: 15:00 Progress Note Suspect that he has persistent pain related to kidney stone. KUB 1 view to see if we can locate the stone. We will give him some Toradol check a basic set of lab and urine. Diagnostic Imaging Diagonstic Imaging: Xray Plain Films/CT/US/NM/MRI: abdomen Comments [facility] [place], [place] NAME: DYLAN [facility] REC#: [id number] PT STATUS: REG ER : 1990 PHYSICIAN: BRIANA CARMONA MD ADMIT DATE: 09/12/21/ER Draft Date of Exam:09/12/21 ABDOMEN/KUB 1VIEW INDICATION: History of renal calculi. Left lower quadrant abdominal pain. COMPARISON: CT dated 08/24/2021. FINDINGS: Two frontal radiographic views of the abdomen were obtained. The small bowel loops are nondistended. No unexpected extraosseous calcifications or radiopaque foreign bodies are seen. There is no large collection of free intraperitoneal air. The osseous structures show no gross acute abnormalities. IMPRESSION: 1. No unexpected extraosseous calcifications are seen. 2. Nonobstructed small bowel gas pattern. Dictated on workstation # [id number] Dict: 09/12/21 1551 Trans: 09/12/21 1555 [id number] Interpreted by: AVIS NARAYANAN MD Electronically signed by: Reviewed: Reviewed by Me Departure Impression Primary Impression: Ureteral calculus, left Disposition: 01 HOME, SELF-CARE Condition: Stable Departure-Patient Inst. Decision time for Depature: 16:15 Referrals: [facility] [place] Primary Care Physician AJIT QUINTANA MD Patient Instructions: How to Strain Your Urine Add. Discharge Instructions: Strain your urine to see if you catch the kidney stone. Hydrocodone 1 tablet every 6 hours as necessary for pain. Zofran 1 tablet every 6 hours as necessary for nausea or vomiting. Continue to take Flomax 1 tablet daily until you pass the stone. Call Dr. Quintana, urology in follow-up this week to help manage your symptoms. All discharge instructions reviewed with patient and/or family. Voiced understanding. Scripts Ondansetron (Ondansetron Odt) 4 Mg Tab.rapdis 4 MG PO Q6H PRN for NAUSEA/VOMITING, #12 TAB 0 Refills Prov: BRIANA CARMONA 09/12/21 Tamsulosin HCl (Flomax) 0.4 Mg Cap 0.4 MG PO DAILY for 7 Days, #7 CAP 0 Refills Prov: BRIANA CARMONA 09/12/21 Hydrocodone/Acetaminophen (Hydrocodone-Acetamin 5-325 mg) 1 Each Tablet 1 TAB PO Q6H PRN for PAIN-MODERATE (5-7), #14 TAB 0 Refills Prov: BRIANA CARMONA 09/12/21 Copy Copies To 1: AJIT QUINTANA MD, TITUS J Sep 12, 2021 15:03
[2021-09-12 15:14] LABS: BASOPHILS % (AUTO) 1 % (0-10); EOSINOPHILS # (AUTO) 0.2 10^3/uL (0.0-0.3); EOSINOPHILS % (AUTO) 3 % (0-10); HEMATOCRIT 45 % (40-54); LYMPHOCYTES # (AUTO) 1.7 10^3/uL (1.0-4.0); LYMPHOCYTES % (AUTO) 30 % (12-44); MEAN CORPUSCULAR HEMOGLOBIN 34 pg (25-34); MEAN CORPUSCULAR HGB CONC 36 g/dL (32-36); MEAN CORPUSCULAR VOLUME 97 fL (80-99); MEAN PLATELET VOLUME 9.9 fL (9.0-12.2); MONOCYTES # (AUTO) 0.4 10^3/uL (0.0-1.0); MONOCYTES % (AUTO) 6 % (0-12); NEUTROPHILS # (AUTO) 3.3 10^3/uL (1.8-7.8); NEUTROPHILS % (AUTO) 60 % (42-75); PLATELET COUNT 166 10^3/uL (130-400); WHITE BLOOD COUNT 5.5 10^3/uL (4.3-11.0)
[2021-09-12 15:28] LABS: POTASSIUM 3.7 MMOL/L (3.6-5.0)
[2021-09-12 15:29] LABS: CALCIUM 9.4 MG/DL (8.5-10.1)
[2021-09-12 15:30] LABS: BILIRUBIN,URINE NEGATIVE (NEGATIVE); CLARITY,URINE CLEAR; COLOR,URINE YELLOW; GLUCOSE, URINE (UA) NEGATIVE (NEGATIVE); KETONES,URINE NEGATIVE (NEGATIVE); LEUKOCYTE ESTERASE ,URINE NEGATIVE (NEGATIVE); NITRITE,URINE NEGATIVE (NEGATIVE); PROTEIN,URINE NEGATIVE (NEGATIVE)
[2021-09-12 15:33] LABS: CREATININE SERUM 1.06 MG/DL (0.60-1.30)
[2021-09-12 15:55] LABS: BACTERIA,URINE NEGATIVE /HPF
--- NOTE | 2021-09-12 15:55 | Diagnostic Imaging Report ---
INDICATION: History of renal calculi. Left lower quadrant abdominal pain. COMPARISON: CT dated 08/24/2021. FINDINGS: Two frontal radiographic views of the abdomen were obtained. The small bowel loops are nondistended. No unexpected extraosseous calcifications or radiopaque foreign bodies are seen. There is no large collection of free intraperitoneal air. The osseous structures show no gross acute abnormalities. IMPRESSION: 1. No unexpected extraosseous calcifications are seen. 2. Nonobstructed small bowel gas pattern. Dictated by: Dictated on workstation # [id number]
[2021-09-12] MEDS ORDERED: TMSL.4C PO (16:19)
[2021-09-12] MEDS ORDERED: ACHD5005 PO (16:19)
[2021-09-12] MEDS ORDERED: ONDA4TAB11 PO (16:19)
== END 2021-09-12 16:30 | disposition home or self-care (01) ==
LOC: EDUNIT# 14:28 → ER 14:29
DX: N20.1 Calculus of ureter (principal); F17.290 Nicotine dependence, other tobacco product, uncomplicated
CPT/HCPCS: 36415; 74018; 80048; 81000; 85025; 96374

== ENCOUNTER 2021-11-21 15:51 | Emergency (ER) | payer SELFPAY ==
[~2021-11-21] VITALS: Ht 177 cm; Wt 99.0 kg
[~2021-11-21 15:51] MED LIST changes: +ACHD5005 PO; +ONDA4TAB11 PO; +TMSL.4C PO
[2021-11-21 16:09] VITALS: BP 132/72
[2021-11-21 16:11] LABS: BILIRUBIN,URINE NEGATIVE (NEGATIVE); CLARITY,URINE CLEAR; COLOR,URINE YELLOW; GLUCOSE, URINE (UA) NEGATIVE (NEGATIVE); KETONES,URINE NEGATIVE (NEGATIVE); LEUKOCYTE ESTERASE ,URINE NEGATIVE (NEGATIVE); NITRITE,URINE NEGATIVE (NEGATIVE); PH,URINE 7.5 (5-9); PROTEIN,URINE NEGATIVE (NEGATIVE)
[2021-11-21 16:18] LABS: BACTERIA,URINE NEGATIVE /HPF; RBC,URINE 0-2 /HPF; SQUAMOUS EPITHELIAL CELL,UR RARE /HPF; WBC,URINE RARE /HPF
[2021-11-21] MEDS ORDERED: KETOROLAC 30 MG/ML VIAL IVP ONE (16:30)
[2021-11-21 16:56] LABS: ALBUMIN 4.4 GM/DL (3.2-4.5); BASOPHILS % (AUTO) 0 % (0-10); EOSINOPHILS # (AUTO) 0.3 10^3/uL (0.0-0.3); EOSINOPHILS % (AUTO) 4 % (0-10); HEMATOCRIT 45 % (40-54); HEMOGLOBIN 16.7 g/dL (13.3-17.7); LYMPHOCYTES # (AUTO) 2.3 10^3/uL (1.0-4.0); LYMPHOCYTES % (AUTO) 33 % (12-44); MEAN CORPUSCULAR HEMOGLOBIN 35 pg (25-34); MEAN CORPUSCULAR HGB CONC 37 g/dL (32-36); MEAN CORPUSCULAR VOLUME 95 fL (80-99); MEAN PLATELET VOLUME 10.5 fL (9.0-12.2); MONOCYTES # (AUTO) 0.5 10^3/uL (0.0-1.0); MONOCYTES % (AUTO) 7 % (0-12); NEUTROPHILS # (AUTO) 3.8 10^3/uL (1.8-7.8); NEUTROPHILS % (AUTO) 55 % (42-75); PLATELET COUNT 154 10^3/uL (130-400); POTASSIUM 4.2 MMOL/L (3.6-5.0); WHITE BLOOD COUNT 6.9 10^3/uL (4.3-11.0)
--- NOTE | 2021-11-21 16:56 | Diagnostic Imaging Report ---
INDICATION: Flank pain EXAM: KUB at 4:54 PM FINDINGS: The lung bases are clear. Bowel gas pattern is normal. There are no pathologic masses or calcifications. IMPRESSION: Unremarkable abdomen. Dictated by: Dictated on workstation # [id number]
[2021-11-21 16:58] LABS: CALCIUM 9.8 MG/DL (8.5-10.1)
[2021-11-21 16:59] LABS: TOTAL PROTEIN 6.8 GM/DL (6.4-8.2)
[2021-11-21 17:01] LABS: BILIRUBIN,TOTAL 0.8 MG/DL (0.1-1.0)
[2021-11-21 17:02] LABS: CREATININE SERUM 1.12 MG/DL (0.60-1.30)
--- NOTE | 2021-11-21 17:02 | Diagnostic Imaging Report ---
PROCEDURE: CT urinary tract, rule out kidney stone. TECHNIQUE: Multiple contiguous axial images were obtained through the abdomen and pelvis without the use of intravenous contrast. Auto Exposure Controls were utilized during the CT exam to meet ALARA standards for radiation dose reduction. INDICATION: Bilateral flank pain. Patient has history of kidney stones. COMPARISON: Prior CT from 08/24/2021. FINDINGS: The lung bases are clear. The liver and gallbladder are unremarkable. There is no biliary ductal dilatation. The pancreas and spleen are unremarkable. No adrenal mass is detected. No definite renal calculus or hydronephrosis is identified. The aorta is nonaneurysmal. No ureteral or bladder calculi are detected. The small and large bowel loops are of normal caliber. There is no obstruction. The appendix is unremarkable. There is no free fluid or fluid collection. The prostate is unremarkable. IMPRESSION: Essentially unremarkable noncontrast CT of the abdomen and pelvis. No definite urinary tract calculus or obstruction is seen. No acute feature in the abdomen or pelvis is identified. Dictated by: Dictated on workstation # [id number]
[2021-11-21] MEDS ORDERED: RX-ONDANSETRON 4 MG ODT (ZOFRAN) PPK #4 PO STA (17:23)
--- NOTE | 2021-11-21 17:28 | ED Back Pain ---
General Chief Complaint: Back Problems Stated Complaint: LOW BACK PAIN LEFT SIDE Nursing Triage Note: PT STATES BACK STARTED TO HURT LAST NIGHT. PT STATES HE HAS PREVIOUSLY HAD KIDNEY STONES. PT ALSO STATES THAT HE FEELS HE NEEDS TO USE THE RESTROOM FREQUENTLY BUT NOT ALOT COMES OUT. Source of Information: Patient Exam Limitations: No Limitations History of Present Illness Date Seen by Provider: November 21, 2021 Time Seen by Provider: 17:15 Allergies and Home Medications Allergies Coded Allergies: No Known Drug Allergies (Unverified , 01/16/09) Patient Home Medication List Amoxicillin (Amoxicillin) 500 Mg Capsule, 500 MG PO TID Prescribed by: LANDEN GUZMAN on 06/25/19 1523 Amoxicillin/Potassium Clav (Amox Tr-K Clv 500-125 mg Tab) 1 Each Tablet, 1 EACH PO BID Prescribed by: OLGA RAYA on 02/26/21 0152 Azithromycin (Azithromycin) 250 Mg Tablet, 250 MG PO UD Prescribed by: TWYLA LEUNG on 11/13/20 1322 Cephalexin (Cephalexin) 500 Mg Tablet, 500 MG PO QID Prescribed by: TWYLA LEUNG on 03/08/21 1327 Ciprofloxacin HCl (Ciprofloxacin HCl) 500 Mg Tablet, 500 MG PO BID Prescribed by: NASIMA MOSER on 08/24/21 0739 Hydrocodone/Acetaminophen (Hydrocodone-Acetamin 5-325 mg) 1 Each Tablet, 1 TAB PO Q6H PRN for PAIN-MODERATE (5-7) Prescribed by: BRIANA CARMONA on 09/12/21 1619 Methylprednisolone (Methylprednisolone Dose Pack) 4 Mg Tab.ds.pk, 4 MG PO UD Prescribed by: WENDY HARPER on 05/15/21 2143 Ondansetron (Ondansetron Odt) 4 Mg Tab.rapdis, 4 MG SL Q4H PRN for NAUSEA/VOMITING Prescribed by: NASIMA MOSER on 08/24/21 0739 Ondansetron (Ondansetron Odt) 4 Mg Tab.rapdis, 4 MG PO Q6H PRN for NAUSEA/VOMITING Prescribed by: BRIANA CARMONA on 09/12/21 1619 Oxycodone HCl/Acetaminophen (Percocet 5-325 mg Tablet) 1 Each Tablet, 1-2 TAB PO Q4H PRN for PAIN-MODERATE (5-7) Prescribed by: NASIMA MOSER on 08/24/21 0739 Prednisone (Prednisone) 20 Mg Tab, 40 MG PO DAILY Prescribed by: TWYLA LEUNG on 11/13/20 1322 Promethazine HCl (Promethazine Tablet) 25 Mg Tablet, 25 MG PO Q6H PRN for NAUSEA/VOMITING-2ND LINE Prescribed by: NASIMA MOSER on 08/24/21 0739 Tamsulosin HCl (Flomax) 0.4 Mg Cap, 0.4 MG PO DAILY Prescribed by: BRIANA CARMONA on 09/12/21 1619 Past Tgzbgdk-Rokmpv-Hyuqqy Hx Patient Social History Tobacco Use?: No Use of E-Cig and/or Vaping dev: Yes Substance use?: No Alcohol Use?: Yes Alcohol type: Beer, Hard Liquor, Wine Alcohol Frequency: Several times a month Pt feels they are or have been: No Immunizations Up To Date First/Initial COVID19 Vaccinat: UNKNOWN DATE Second COVID19 Vaccination Zach: UNKNOWN DATE Third COVID19 Vaccination Date: UNKNOWN DATE Seasonal Allergies Seasonal Allergies: No Past Medical History Surgery/Hospitalization HX: renal stones Surgeries: No Respiratory: No Cardiac: No Neurological: No Reproductive Disorders: No Gastrointestinal: No Musculoskeletal: No Endocrine: No Cancer: No Psychosocial: Yes Depression Integumentary: Yes (HIVES) Blood Disorders: No Physical Exam Vital Signs Vital Signs - First Documented 11/21/21 16:09 Temp 36.2 Pulse 82 Resp 16 B/P (MAP) 132/72 (92) Pulse Ox 96 O2 Delivery Room Air Capillary Refill : Less Than 3 Seconds Height, Weight, BMI Height: 5'10" Weight: 195lbs. oz. 88.690202vd; 31.00 BMI Method:Actual Procedures/Interventions Suture Size: 4-0 Progress/Results/Core Measures Results/Orders Lab Results Laboratory Tests Test 11/21/21 16:07 11/21/21 16:27 Range/Units Urine Color YELLOW Urine Clarity CLEAR Urine pH 7.5 5-9 Urine Specific [place] 1.015 L 1.016-1.022 Urine Protein NEGATIVE NEGATIVE Urine Glucose (UA) NEGATIVE NEGATIVE Urine Ketones NEGATIVE NEGATIVE Urine Nitrite NEGATIVE NEGATIVE Urine Bilirubin NEGATIVE NEGATIVE Urine Urobilinogen 0.2 < = 1.0 MG/DL Urine Leukocyte Esterase NEGATIVE NEGATIVE Urine RBC (Auto) NEGATIVE NEGATIVE Urine RBC 0-2 /HPF Urine WBC RARE /HPF Urine Squamous Epithelial Cells RARE /HPF Urine Renal Epithelial Cells NONE /HPF Urine Crystals NONE /LPF Urine Bacteria NEGATIVE /HPF Urine Casts NONE /LPF Urine Mucus NEGATIVE /LPF Urine Culture Indicated NO White Blood Count 6.9 4.3-11.0 10^3/uL Red Blood Count 4.78 4.30-5.52 10^6/uL Hemoglobin 16.7 13.3-17.7 g/dL Hematocrit 45 40-54 % Mean Corpuscular Volume 95 80-99 fL Mean Corpuscular Hemoglobin 35 H 25-34 pg Mean Corpuscular Hemoglobin Concent 37 H 32-36 g/dL Red Cell Distribution Width 11.2 10.0-14.5 % Platelet Count 154 130-400 10^3/uL Mean Platelet Volume 10.5 9.0-12.2 fL Immature Granulocyte % (Auto) 0 % Neutrophils (%) (Auto) 55 42-75 % Lymphocytes (%) (Auto) 33 12-44 % Monocytes (%) (Auto) 7 0-12 % Eosinophils (%) (Auto) 4 0-10 % Basophils (%) (Auto) 0 0-10 % Neutrophils # (Auto) 3.8 1.8-7.8 10^3/uL Lymphocytes # (Auto) 2.3 1.0-4.0 10^3/uL Monocytes # (Auto) 0.5 0.0-1.0 10^3/uL Eosinophils # (Auto) 0.3 0.0-0.3 10^3/uL Basophils # (Auto) 0.0 0.0-0.1 10^3/uL Immature Granulocyte # (Auto) 0.0 0.0-0.1 10^3/uL Sodium Level 141 135-145 MMOL/L Potassium Level 4.2 3.6-5.0 MMOL/L Chloride Level 106 98-107 MMOL/L Carbon Dioxide Level 23 21-32 MMOL/L Anion Gap 12 5-14 MMOL/L Blood Urea Nitrogen 15 7-18 MG/DL Creatinine 1.12 0.60-1.30 MG/DL Estimat Glomerular Filtration Rate 90 BUN/Creatinine Ratio 13 Glucose Level 92 70-105 MG/DL Calcium Level 9.8 8.5-10.1 MG/DL Corrected Calcium 9.5 8.5-10.1 MG/DL Total Bilirubin 0.8 0.1-1.0 MG/DL Aspartate Amino Transf (AST/SGOT) 12 5-34 U/L Alanine Aminotransferase (ALT/SGPT) 25 0-55 U/L Alkaline Phosphatase 41 40-136 U/L Total Protein 6.8 6.4-8.2 GM/DL Albumin 4.4 3.2-4.5 GM/DL My Orders Orders - WENDY HARPER APRN Ua Culture If Indicated (11/21/21 15:55) Ct Abd/Pelvis Wo(Kidney Stone) (11/21/21 16:16) Abdomen/Kub 1view (11/21/21 16:16) Ed Iv/Invasive Line Start (11/21/21 16:16) Ketorolac Injection (Toradol Injection) (11/21/21 16:30) Cbc With Automated Diff (11/21/21 16:50) Comprehensive Metabolic Panel (11/21/21 16:50) Rx-Hydrocodone/Apap 5-325 Mg (Rx-Vicodin (11/21/21 17:30) Rx-Ondansetron Po (Rx-Zofran Po) (11/21/21 17:23) Fentanyl Inj (Sublimaze Injection) (11/21/21 17:30) Medications Given in ED Current Medications Medications Dose Ordered Sig/Isabel Route Start Time Stop Time Status Last Admin Dose Admin Ketorolac Tromethamine 30 mg ONCE ONCE IVP 11/21/21 16:30 11/21/21 16:31 DC 11/21/21 16:24 30 MG Vital Signs/I&O 11/21/21 16:09 Temp 36.2 Pulse 82 Resp 16 B/P (MAP) 132/72 (92) Pulse Ox 96 O2 Delivery Room Air Blood Pressure Mean: 92 Departure Impression Primary Impression: Renal colic on left side Disposition: 01 HOME, SELF-CARE Condition: Improved Departure-Patient Inst. Decision time for Depature: 17:34 Referrals: [facility] (PCP/Family) Primary Care Physician Patient Instructions: Renal Colic Add. Discharge Instructions: Plan: 1. Take hydrocodone and Zofran as directed for your pain and nausea. 2. Drink plenty of fluids to stay hydrated and help you flush out your kidneys. 3. Establish with a primary care provider of your choice, if you go to [facility] I recommend following up with them regarding your persistent heartburn. 4. You have been prescribed pantoprazole, you will take this daily as directed. Avoid taking Tums within 2 hours of this medication. I would suggest limiting amount of Tums you eat this will help with recurrent kidney stones. 5. Return for any new, concerning, worsening symptoms. All discharge instructions reviewed with patient and/or family. Voiced understanding. Scripts Pantoprazole Sodium (Pantoprazole Sodium) 20 Mg Tablet. 20 MG PO DAILY for 30 Days, #30 TAB 0 Refills Prov: WENDY HARPER AIRLINE CAPTAIN 11/21/21 WENDY HARPER AIRLINE CAPTAIN November 21, 2021 17:28
[2021-11-21] MEDS ORDERED: fentaNYL INJ 100 MCG/2 ML AMP IVP ONE (17:30)
[2021-11-21] MEDS ORDERED: PANT20TA18 PO (17:36)
[2021-11-21] MEDS ORDERED: HYDROcodone/APAP 5 MG/325 MG (LORTAB) TAB PO ONE (18:00)
== END 2021-11-21 18:13 | disposition home or self-care (01) ==
LOC: EDUNIT# 15:51 → ER 15:55
DX: N23 Unspecified renal colic (principal); F17.290 Nicotine dependence, other tobacco product, uncomplicated
CPT/HCPCS: 36415; 74018; 74176; 80053; 81000; 85025; 99282

== ENCOUNTER 2022-07-03 15:04 | Emergency (ER) | payer BC ==
[~2022-07-03] VITALS: Ht 177.8 cm; Wt 95.3 kg
[~2022-07-03 15:04] MED LIST changes: +PANT20TA18 PO
[2022-07-03] MEDS ORDERED: LACTATED RINGERS 1,000 ML IV ONE (15:45)
[2022-07-03] MEDS ORDERED: ONDANSETRON 4 MG/2 ML (SDV) Z0FRAN IVP ONE (15:45)
[2022-07-03 16:00] LABS: BILIRUBIN,URINE NEGATIVE (NEGATIVE); CLARITY,URINE CLEAR; COLOR,URINE YELLOW; GLUCOSE, URINE (UA) NEGATIVE (NEGATIVE); KETONES,URINE NEGATIVE (NEGATIVE); LEUKOCYTE ESTERASE ,URINE NEGATIVE (NEGATIVE); NITRITE,URINE NEGATIVE (NEGATIVE); PROTEIN,URINE NEGATIVE (NEGATIVE)
[2022-07-03] MEDS ORDERED: HOLD METFORMIN - RECEIVED CONTRAST 20 ML VIAL IV SCH (16:00)
[2022-07-03] MEDS ORDERED: IOHEXOL 350 MG/ML 100 ML (OMNIPAQUE 350) VIAL IV ONE (16:00)
[2022-07-03] MEDS ORDERED: NS 100 ML (IVPB) BAG IV ONE (16:00)
[2022-07-03 16:17] LABS: BACTERIA,URINE NEGATIVE /HPF; SQUAMOUS EPITHELIAL CELL,UR 0-2 /HPF
[2022-07-03 16:19] LABS: AMPHETAMINE SCREEN, URINE NEGATIVE (NEGATIVE); BARBITURATE SCREEN URINE NEGATIVE (NEGATIVE); BENZODIAZEPINES SCREEN URINE NEGATIVE (NEGATIVE); CANNABINOID SCREEN, URINE NEGATIVE (NEGATIVE); COCAINE SCREEN URINE NEGATIVE (NEGATIVE); METHADONE STAT NEGATIVE (NEGATIVE); OPIATE SCREEN URINE NEGATIVE (NEGATIVE); OXYCODONE STAT NEGATIVE (NEGATIVE); PROPOXYPHENE STAT NEGATIVE (NEGATIVE); TRICYCLIC ANTIDEPRESSANTS SCRE NEGATIVE (NEGATIVE)
[2022-07-03 16:31] LABS: BASOPHILS % (AUTO) 0 % (0-10); EOSINOPHILS # (AUTO) 0.3 10^3/uL (0.0-0.3); EOSINOPHILS % (AUTO) 4 % (0-10); HEMATOCRIT 46 % (40-54); HEMOGLOBIN 16.8 g/dL (13.3-17.7); LYMPHOCYTES # (AUTO) 2.6 10^3/uL (1.0-4.0); LYMPHOCYTES % (AUTO) 38 % (12-44); MEAN CORPUSCULAR HEMOGLOBIN 35 pg (25-34); MEAN CORPUSCULAR HGB CONC 36 g/dL (32-36); MEAN CORPUSCULAR VOLUME 95 fL (80-99); MEAN PLATELET VOLUME 10.5 fL (9.0-12.2); MONOCYTES # (AUTO) 0.4 10^3/uL (0.0-1.0); MONOCYTES % (AUTO) 6 % (0-12); NEUTROPHILS # (AUTO) 3.6 10^3/uL (1.8-7.8); NEUTROPHILS % (AUTO) 52 % (42-75); PLATELET COUNT 174 10^3/uL (130-400); WHITE BLOOD COUNT 6.9 10^3/uL (4.3-11.0)
--- NOTE | 2022-07-03 16:36 | Diagnostic Imaging Report ---
EXAMINATION: CT abdomen and pelvis with intravenous contrast. TECHNIQUE: Multiple contiguous axial images were obtained through the abdomen and pelvis after the uneventful administration of intravenous contrast. All CT scans use one or more of the following dose optimizing techniques: Automated exposure control, MA and/or KvP adjustment based on patient size and exam type or iterative reconstruction. HISTORY: Epigastric abdominal pain. COMPARISON: 11/21/2021. FINDINGS: The heart is unremarkable. The included lung bases are clear. The liver, spleen, pancreas, adrenal glands, and kidneys have a normal appearance. The gallbladder is unremarkable. The portal vein is patent. There is no pathologically enlarged mesenteric or retroperitoneal adenopathy. The bowel loops are nondilated. The appendix is visualized in the right lower quadrant and has a normal appearance. There is no free fluid or free air. No acute osseous abnormalities. Ureters and bladder are grossly normal. There is no free air, loculated collection, or adenopathy in the pelvis. IMPRESSION: 1. No acute abnormalities in the abdomen and pelvis. No bowel obstruction, free fluid, or free air. Normal appendix. Dictated by: Dictated on workstation # [id number]
[2022-07-03 16:37] LABS: ALBUMIN 4.5 GM/DL (3.2-4.5)
[2022-07-03 16:38] LABS: AMYLASE 31 U/L (25-125); CALCIUM 9.6 MG/DL (8.5-10.1)
[2022-07-03 16:39] LABS: GLUCOSE 122 MG/DL (70-105); TOTAL PROTEIN 7.2 GM/DL (6.4-8.2)
[2022-07-03 16:40] LABS: CARBON DIOXIDE 22 MMOL/L (21-32)
[2022-07-03 16:41] LABS: BILIRUBIN,TOTAL 0.8 MG/DL (0.1-1.0)
[2022-07-03 16:42] LABS: ALKALINE PHOSPHATASE 43 U/L (40-136)
[2022-07-03 16:43] LABS: CREATININE SERUM 1.16 MG/DL (0.60-1.30); GFR ESTIMATED 85
[2022-07-03 16:44] LABS: BUN/CREATININE RATIO 13
[2022-07-03 16:46] LABS: ALANINE AMINOTRANSFERASE 28 U/L (0-55); LIPASE 26 U/L (8-78)
[2022-07-03] MEDS ORDERED: PANT40TA2 PO (17:12)
[2022-07-03] MEDS ORDERED: SUCR1TAB36 PO (17:12)
[2022-07-03] MEDS ORDERED: ONDA4TAB11 PO (17:12)
--- NOTE | 2022-07-03 17:13 | ED Abdominal Pain ---
General Chief Complaint: Abdominal/GI Problems Stated Complaint: UPPER ABD PAIN/PRESSURE Nursing Triage Note: PT AMB TO TRIAGE WITH COMPLAINT OF ABD PAIN. STATES STARTS AT BELLY BUTTON AND RADIATES UP. STATES HAS HAD INTERMITTENTLY FOR 2 MONTHS. PAIN WORSENED TODAY AT WORK. Source of Information: Patient History of Present Illness Date Seen by Provider: Jul 03, 2022 Time Seen by Provider: 15:35 Initial Comments PT ARRIVES VIA POV FROM HOME C/O EPIGASTRIC PAIN FOR SEVERAL MONTHS--STATES IT IS BETWEEN HIS BELLY BUTTON AND HIS STERNUM. PAIN COMES AND GOES, NOTHING WORSENS OR IMPROVES PAIN NO RADIATION OF PAIN LATELY HE HAS ALSO HAD SOME NAUSEA OFF AND ON, NO VOMITING OR DIARRHEA NO FEVER NO URINARY SYMPTOMS HAS NOT TAKEN ANYTHING FOR SYMPTOMS AT ANY TIME HAS NOT SOUGHT CARE UNTIL TODAY SYMPTOMS NO DIFFERENT TODAY, HE WAS AT WORK TODAY AND HAD SOME PAIN, SO HE CAME HERE HE ATE 2 HOT POCKETS AT 0800 THIS AM, AND ATE AN OATMEAL CREAM PIE IN THE CAR ON THE WAY HERE. PT HAS NOT HAD ANY SURGERIES OF ANY KIND, AND NEVER HAD AN ENDOSCOPY. HE SMOKED 2 1/2 PPD, NOW VAPES; HX OF ETOH ABUSE, QUIT 3 MONTHS AGO: DENIES DRUG USE Allergies and Home Medications Allergies Coded Allergies: No Known Drug Allergies (Unverified , 01/16/09) Patient Home Medication List Home Medication List Reviewed: Yes Amoxicillin (Amoxicillin) 500 Mg Capsule, 500 MG PO TID Prescribed by: LANDEN GUZMAN on 06/25/19 1523 Amoxicillin/Potassium Clav (Amox Tr-K Clv 500-125 mg Tab) 1 Each Tablet, 1 EACH PO BID Prescribed by: OLGA RAYA on 02/26/21 0152 Azithromycin (Azithromycin) 250 Mg Tablet, 250 MG PO UD Prescribed by: TWYLA LEUNG on 11/13/20 1322 Cephalexin (Cephalexin) 500 Mg Tablet, 500 MG PO QID Prescribed by: TWYLA LEUNG on 03/08/21 1327 Ciprofloxacin HCl (Ciprofloxacin HCl) 500 Mg Tablet, 500 MG PO BID Prescribed by: NASIMA MOSER on 08/24/21 0739 Hydrocodone/Acetaminophen (Hydrocodone-Acetamin 5-325 mg) 1 Each Tablet, 1 TAB PO Q6H PRN for PAIN-MODERATE (5-7) Prescribed by: BRIANA CARMONA on 09/12/21 1619 Methylprednisolone (Methylprednisolone Dose Pack) 4 Mg Tab.ds.pk, 4 MG PO UD Prescribed by: WENDY HARPER on 05/15/21 2143 Ondansetron (Ondansetron Odt) 4 Mg Tab.rapdis, 4 MG SL Q4H PRN for NAUSEA/VOMITING Prescribed by: NASIMA MOSER on 08/24/21 0739 Ondansetron (Ondansetron Odt) 4 Mg Tab.rapdis, 4 MG PO Q6H PRN for NAUSEA/VOMITING Prescribed by: BRIANA CARMONA on 09/12/21 1619 Ondansetron (Ondansetron Odt) 4 Mg Tab.rapdis, 4 MG PO Q4H Prescribed by: EDU MATT on 07/03/22 171 Oxycodone HCl/Acetaminophen (Percocet 5-325 mg Tablet) 1 Each Tablet, 1-2 TAB PO Q4H PRN for PAIN-MODERATE (5-7) Prescribed by: NASIMA MOSER on 08/24/21 0739 Pantoprazole Sodium (Pantoprazole Sodium) 20 Mg Tablet.dr, 20 MG PO DAILY Prescribed by: WENDY HARPER on 11/21/21 1736 Pantoprazole Sodium (Protonix) 40 Mg Tablet.dr, 40 MG PO DAILY Prescribed by: EDU MATT on 07/03/22 171 Prednisone (Prednisone) 20 Mg Tab, 40 MG PO DAILY Prescribed by: TWYLA LEUNG on 11/13/20 1322 Promethazine HCl (Promethazine Tablet) 25 Mg Tablet, 25 MG PO Q6H PRN for NAUSE A/VOMITING-2ND LINE Prescribed by: NASIMA MOSER on 08/24/21 0739 Sucralfate (Carafate) 1 Gram Tablet, 1 GM PO QID Prescribed by: EDU MATT on 07/03/22 171 Tamsulosin HCl (Flomax) 0.4 Mg Cap, 0.4 MG PO DAILY Prescribed by: BRIANA CARMONA on 09/12/21 1619 Review of Systems Review of Systems Constitutional: no symptoms reported Respiratory: No Symptoms Reported Cardiovascular: No Symptoms Reported Gastrointestinal: See HPI, Abdominal Pain; Denies Constipated, Denies Diarrhea; Nausea; Denies Vomiting Genitourinary: No Symptoms Reported Musculoskeletal: no symptoms reported; No back pain Skin: no symptoms reported Psychiatric/Neurological: No Symptoms Reported Endocrine: No Symptoms Reported Hematologic/Lymphatic: No Symptoms Reported Past Ncqqepi-Gehlqj-Ypnqta Hx Patient Social History Tobacco Use?: Yes Tobacco type used: Cigarettes Use of E-Cig and/or Vaping dev: Yes E-Cig or Vaping type used: Nicotine Use of E-Cig and/or Vaping Leroy: Current Everyday User Substance use?: No Alcohol Use?: Yes Pt feels they are or have been: No Immunizations Up To Date First/Initial COVID19 Vaccinat: UNKNOWN DATE Second COVID19 Vaccination Zach: UNKNOWN DATE Third COVID19 Vaccination Date: UNKNOWN DATE Seasonal Allergies Seasonal Allergies: No Past Medical History Surgery/Hospitalization HX: renal stones Surgeries: No Respiratory: No Cardiac: No Neurological: No Reproductive Disorders: No Genitourinary: Yes Kidney Stones Gastrointestinal: Yes (SELF DX OF GERD, NO MEDICATIONS) Gastroesophageal Reflux Musculoskeletal: No Endocrine: No Cancer: No Psychosocial: Yes (MOOD DISORDER) Anxiety, Depression Integumentary: Yes (HIVES) Blood Disorders: No Family Medical History SOCIAL HISTORY: -SMOKED 2 1/2 PPD, NOW VAPES -ETOH--HISTORY OF ABUSE, CLAIMS HE QUIT 3 YEARS AGO, PER PT ON 07/03/22 -DENIES DRUG USE Physical Exam Vital Signs Vital Signs - First Documented 07/03/22 15:10 Pulse 62 Resp 16 B/P (MAP) 115/73 (87) Pulse Ox 98 O2 Delivery Room Air Capillary Refill : Less Than 3 Seconds Height/Weight/BMI Height: 5'10" Weight: 195lbs. oz. 88.156672wk; 30.00 BMI Method:Actual General Appearance: WD/WN, no apparent distress, other (TEXTING/PLAYING ON PHONE THROUGHOUT EXAM AND HISTORY. DOES NOT APPEAR ILL OR TO BE IN ANY DISCOMFORT OR DISTRESS. SITTING IN CHAIR WITH ONE LEG CROSSED OVER THE OTHER KNEE. WALKS UPRIGHT AND MOVES QUICKLY WITHOUT DIFFICULTY. ) Respiratory: normal breath sounds, no respiratory distress, no accessory muscle use Cardiovascular: regular rate, rhythm, no murmur Gastrointestinal: normal bowel sounds, soft; No distended, No guarding, No rebound; tenderness (MILD EPIGASTRIC TENDERNESS. ); No hernia, No mass Extremities: normal inspection, normal capillary refill Back: no CVA tenderness Neurologic/Psychiatric: no motor/sensory deficits, alert, normal mood/affect, oriented x 3 Skin: normal color, warm/dry Procedures/Interventions Suture Size: 4-0 Progress/Results/Core Measures Results/Orders Lab Results Laboratory Tests Test 07/03/22 15:29 07/03/22 15:52 Range/Units White Blood Count 6.9 4.3-11.0 10^3/uL Red Blood Count 4.87 4.30-5.52 10^6/uL Hemoglobin 16.8 13.3-17.7 g/dL Hematocrit 46 40-54 % Mean Corpuscular Volume 95 80-99 fL Mean Corpuscular Hemoglobin 35 H 25-34 pg Mean Corpuscular Hemoglobin Concent 36 32-36 g/dL Red Cell Distribution Width 11.6 10.0-14.5 % Platelet Count 174 130-400 10^3/uL Mean Platelet Volume 10.5 9.0-12.2 fL Immature Granulocyte % (Auto) 0 % Neutrophils (%) (Auto) 52 42-75 % Lymphocytes (%) (Auto) 38 12-44 % Monocytes (%) (Auto) 6 0-12 % Eosinophils (%) (Auto) 4 0-10 % Basophils (%) (Auto) 0 0-10 % Neutrophils # (Auto) 3.6 1.8-7.8 10^3/uL Lymphocytes # (Auto) 2.6 1.0-4.0 10^3/uL Monocytes # (Auto) 0.4 0.0-1.0 10^3/uL Eosinophils # (Auto) 0.3 0.0-0.3 10^3/uL Basophils # (Auto) 0.0 0.0-0.1 10^3/uL Immature Granulocyte # (Auto) 0.0 0.0-0.1 10^3/uL Sodium Level 139 135-145 MMOL/L Potassium Level 3.8 3.6-5.0 MMOL/L Chloride Level 107 98-107 MMOL/L Carbon Dioxide Level 22 21-32 MMOL/L Anion Gap 10 5-14 MMOL/L Blood Urea Nitrogen 15 7-18 MG/DL Creatinine 1.16 0.60-1.30 MG/DL Estimat Glomerular Filtration Rate 85 BUN/Creatinine Ratio 13 Glucose Level 122 H 70-105 MG/DL Calcium Level 9.6 8.5-10.1 MG/DL Corrected Calcium 9.2 8.5-10.1 MG/DL Total Bilirubin 0.8 0.1-1.0 MG/DL Aspartate Amino Transf (AST/SGOT) 13 5-34 U/L Alanine Aminotransferase (ALT/SGPT) 28 0-55 U/L Alkaline Phosphatase 43 40-136 U/L Total Protein 7.2 6.4-8.2 GM/DL Albumin 4.5 3.2-4.5 GM/DL Amylase Level 31 25-125 U/L Lipase 26 8-78 U/L Serum Alcohol < 10 <10 MG/DL Urine Color YELLOW Urine Clarity CLEAR Urine pH 6.0 5-9 Urine Specific [place] >=1.030 1.016-1.022 Urine Protein NEGATIVE NEGATIVE Urine Glucose (UA) NEGATIVE NEGATIVE Urine Ketones NEGATIVE NEGATIVE Urine Nitrite NEGATIVE NEGATIVE Urine Bilirubin NEGATIVE NEGATIVE Urine Urobilinogen 0.2 < = 1.0 MG/DL Urine Leukocyte Esterase NEGATIVE NEGATIVE Urine RBC (Auto) NEGATIVE NEGATIVE Urine RBC NONE /HPF Urine WBC NONE /HPF Urine Squamous Epithelial Cells 0-2 /HPF Urine Crystals NONE /LPF Urine Bacteria NEGATIVE /HPF Urine Casts NONE /LPF Urine Mucus NEGATIVE /LPF Urine Culture Indicated NO Urine Opiates Screen NEGATIVE NEGATIVE Urine Oxycodone Screen NEGATIVE NEGATIVE Urine Methadone Screen NEGATIVE NEGATIVE Urine Propoxyphene Screen NEGATIVE NEGATIVE Urine Barbiturates Screen NEGATIVE NEGATIVE Ur Tricyclic Antidepressants Screen NEGATIVE NEGATIVE Urine Phencyclidine Screen NEGATIVE NEGATIVE Urine Amphetamines Screen NEGATIVE NEGATIVE Urine Methamphetamines Screen NEGATIVE NEGATIVE Urine Benzodiazepines Screen NEGATIVE NEGATIVE Urine Cocaine Screen NEGATIVE NEGATIVE Urine Cannabinoids Screen NEGATIVE NEGATIVE My Orders Orders - EDU MATT DO Ed Iv/Invasive Line Start (07/03/22 15:41) Ct Abdomen/Pelvis W (07/03/22 15:41) Alcohol (07/03/22 15:41) Amylase (07/03/22 15:41) Cbc With Automated Diff (07/03/22 15:41) Comprehensive Metabolic Panel (07/03/22 15:41) Drug Screen Stat (Urine) (07/03/22 15:41) Lipase (07/03/22 15:41) Ua Culture If Indicated (07/03/22 15:41) Ed Iv/Invasive Line Start (07/03/22 15:41) Lactated Ringers (Lr 1000 Ml Iv Solution (07/03/22 15:45) Ondansetron Injection (Zofran Injectio (07/03/22 15:45) Iohexol Injection (Omnipaque 350 Mg/Ml 1 (07/03/22 16:00) Received Contrast (Hold Metformin- Contr (07/03/22 16:00) Ns (Ivpb) (Sodium Chloride 0.9% Ivpb Bag (07/03/22 16:00) Medications Given in ED Current Medications Medications Dose Ordered Sig/Isabel Route Start Time Stop Time Status Last Admin Dose Admin Iohexol 100 ml ONCE ONCE IV 07/03/22 16:00 07/03/22 16:01 DC 07/03/22 16:09 80 ML Lactated Ringer's 1,000 ml @ 0 mls/hr Q0M ONCE IV 07/03/22 15:45 07/03/22 15:46 DC 07/03/22 15:58 1,000 MLS/HR Ondansetron HCl 4 mg ONCE ONCE IVP 07/03/22 15:45 07/03/22 15:46 DC 07/03/22 15:58 4 MG Sodium Chloride 100 ml ONCE ONCE IV 07/03/22 16:00 07/03/22 16:01 DC 07/03/22 16:09 80 ML Vital Signs/I&O 07/03/22 15:10 Pulse 62 Resp 16 B/P (MAP) 115/73 (87) Pulse Ox 98 O2 Delivery Room Air Blood Pressure Mean: 87 Progress Progress Note : Progress Note GIVEN IV FLUIDS AND ZOFRAN NO COMPLAINTS OF PAIN OR NAUSEA FOR REMAINDER OF ER STAY REVIEWED PREVIOUS ER RECORDS--MULTIPLE VISITS, VARIOUS COMPLAINTS REVIEWED TEST RESULTS, ANTICIPATED COURSE, MEDICATIONS, DIET, SYMPTOMATIC TREATMENT, NEED FOR FOLLOW AND RETURN PRECAUTIONS DISCUSSED POSSIBLE OUTPATIENT TESTING TO BE ARRANGED BY HIS PCP IF HIS SYMPTOMS PERSISTED INCLUDING, ULTRASOUND, HIDA SCAN AND ENDOSCOPY. Diagnostic Imaging Comments CT ABDOMEN/PELVIS--PER RADIOLOGIST REPORT AT 1709 FINDINGS: The heart is unremarkable. The included lung bases are clear. The liver, spleen, pancreas, adrenal glands, and kidneys have a normal appearance. The gallbladder is unremarkable. The portal vein is patent. There is no pathologically enlarged mesenteric or retroperitoneal adenopathy. The bowel loops are nondilated. The appendix is visualized in the right lower quadrant and has a normal appearance. There is no free fluid or free air. No acute osseous abnormalities. Ureters and bladder are grossly normal. There is no free air, loculated collection, or adenopathy in the pelvis. IMPRESSION: 1. No acute abnormalities in the abdomen and pelvis. No bowel obstruction, free fluid, or free air. Normal appendix. Reviewed: Reviewed by Me Departure Impression Primary Impression: Epigastric abdominal pain Disposition: HOME, SELF-CARE Condition: Stable Departure-Patient Inst. Decision time for Depature: 17:10 Referrals: [facility] (PCP/Family) Primary Care Physician Patient Instructions: Abdominal Pain, Adult ED Add. Discharge Instructions: CLEAR LIQUIDS--WATER, BROTH, JELLO, GATORADE BRATS DIET--BANANAS, RICE, APPLESAUCE, TOAST, SALTINES NO ALCOHOL, NO SMOKING OR VAPING, NO DRUGS FOLLOW UP WITH [facility] IN 5-7 DAYS FOR FURTHER CARE--CALL IN THE MORNING TO SCHEDULE AN APPOINTMENT, RETURN TO ER IF SYMPTOMS WORSEN All discharge instructions reviewed with patient and/or family. Voiced understanding. Scripts Ondansetron (Ondansetron Odt) 4 Mg Tab.rapdis 4 MG PO Q4H for Nausea/Vomiting, #10 TAB Prov: EDU MATT DO 07/03/22 Sucralfate (Carafate) 1 Gram Tablet 1 GM PO QID, #60 TAB Prov: EDU MATT DO 07/03/22 Pantoprazole Sodium (Protonix) 40 Mg Tablet.dr 40 MG PO DAILY, #15 TAB Prov: EDU MATT DO 07/03/22 EDU MATT DO Jul 03, 2022 17:13
[2022-07-03 17:25] LABS: CHLORIDE 107 MMOL/L (98-107); POTASSIUM 3.8 MMOL/L (3.6-5.0); SODIUM 139 MMOL/L (135-145)
[2022-07-03 17:41] VITALS: BP 128/84
== END 2022-07-03 17:38 | disposition home or self-care (01) ==
LOC: EDUNIT# 15:04 → ER 15:07
DX: R10.13 Epigastric pain (principal); F17.210 Nicotine dependence, cigarettes, uncomplicated; F17.290 Nicotine dependence, other tobacco product, uncomplicated; Z87.19 Personal history of other diseases of the digestive system
CPT/HCPCS: 36415; 74177; 80053; 80306; 80320; 81000; 82150; 83690; 85025

== ENCOUNTER 2022-07-22 14:47 | Emergency (ER) | payer BC ==
[~2022-07-22] VITALS: Ht 177.8 cm; Wt 95.3 kg
[~2022-07-22 14:47] MED LIST changes: +PANT40TA2 PO; +SUCR1TAB36 PO
[2022-07-22] MEDS ORDERED: KETOROLAC 30 MG/ML VIAL IM ONE (15:30)
[2022-07-22 15:32] LABS: BILIRUBIN,URINE NEGATIVE (NEGATIVE); CLARITY,URINE CLEAR; COLOR,URINE YELLOW; GLUCOSE, URINE (UA) NEGATIVE (NEGATIVE); KETONES,URINE NEGATIVE (NEGATIVE); LEUKOCYTE ESTERASE ,URINE NEGATIVE (NEGATIVE); NITRITE,URINE NEGATIVE (NEGATIVE); PROTEIN,URINE NEGATIVE (NEGATIVE)
[2022-07-22 15:39] LABS: BACTERIA,URINE NEGATIVE /HPF
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
[2022-07-22 16:04] VITALS: BP 164/84
== END 2022-07-22 16:04 | disposition home or self-care (01) ==
LOC: EDUNIT# 14:47 → ER 14:50
DX: N20.0 Calculus of kidney (principal); B89 Unspecified parasitic disease; Z87.891 Personal history of nicotine dependence
CPT/HCPCS: 81000; 99284

== ENCOUNTER 2023-04-19 12:15 | Emergency (ER) | payer SELFPAY ==
[~2023-04-19] VITALS: Ht 177.8 cm; Wt 102.5 kg
[2023-04-19] MEDS ORDERED: NS IV 1000 ML 1,000 ML IV STA (12:26)
[2023-04-19] MEDS ORDERED: ONDANSETRON INJECTION 4 MG/2 ML (SDV) IVP ONE (12:30)
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
[2023-04-19] MEDS ORDERED: PANTOPRAZOLE INJECTION 40 MG VIAL IV ONE (12:45)
[2023-04-19 12:49] LABS: BASOPHILS % (AUTO) 0 % (0-10); EOSINOPHILS # (AUTO) 0.2 10^3/uL (0.0-0.3); EOSINOPHILS % (AUTO) 2 % (0-10); HEMATOCRIT 48 % (40-54); HEMOGLOBIN 17.2 g/dL (13.3-17.7); LYMPHOCYTES # (AUTO) 1.5 10^3/uL (1.0-4.0); LYMPHOCYTES % (AUTO) 22 % (12-44); MEAN CORPUSCULAR HEMOGLOBIN 34 pg (25-34); MEAN CORPUSCULAR HGB CONC 36 g/dL (32-36); MEAN CORPUSCULAR VOLUME 94 fL (80-99); MEAN PLATELET VOLUME 9.8 fL (9.0-12.2); MONOCYTES # (AUTO) 0.4 10^3/uL (0.0-1.0); MONOCYTES % (AUTO) 6 % (0-12); NEUTROPHILS # (AUTO) 4.8 10^3/uL (1.8-7.8); NEUTROPHILS % (AUTO) 70 % (42-75); PLATELET COUNT 168 10^3/uL (130-400)
[2023-04-19 12:56] LABS: ALBUMIN 4.4 GM/DL (3.2-4.5); POTASSIUM 3.9 MMOL/L (3.6-5.0); PROTHROMBIN TIME PATIENT 13.4 SEC (12.2-14.7)
[2023-04-19 12:57] LABS: CALCIUM 9.2 MG/DL (8.5-10.1)
[2023-04-19 12:59] LABS: TOTAL PROTEIN 7.2 GM/DL (6.4-8.2)
[2023-04-19 13:00] LABS: BILIRUBIN,TOTAL 0.7 MG/DL (0.1-1.0)
[2023-04-19 13:02] LABS: CREATININE SERUM 1.02 MG/DL (0.60-1.30)
--- NOTE | 2023-04-19 13:14 | Diagnostic Imaging Report ---
INDICATION: chest pain COMPARISON: 11/13/2020. FINDINGS: Single frontal view of the chest demonstrates normal heart size and pulmonary vascularity. The lungs are well aerated and clear. No large pleural effusion or pneumothorax is seen. The visualized osseous structures show no acute abnormalities. IMPRESSION: 1. No acute cardiopulmonary process. Dictated by: Dictated on workstation # [id number]
[2023-04-19] MEDS ORDERED: ONDA4TAB11 SL (13:55)
[2023-04-19 14:00] VITALS: BP 124/71
== END 2023-04-19 14:00 | disposition home or self-care (01) ==
LOC: EDUNIT# 12:15 → ER 12:18
DX: K92.0 Hematemesis (principal); F17.290 Nicotine dependence, other tobacco product, uncomplicated; F17.210 Nicotine dependence, cigarettes, uncomplicated
CPT/HCPCS: 71045; 80053; 83690; 85025; 85610; 85730; 96361; 96374; 96375; 99284; G0480; 36415; 80320